=== PATIENT | female | born 1940 | race Caucasian/White ===

== ENCOUNTER 2017-11-21 09:39 | Day surgery (SDC) | payer MEDICARE, OTHER ==
[2017-11-21] MEDS ORDERED: Marcaine 0.5% SDV 10 ML IJ ONE (09:40)
[2017-11-21] MEDS ORDERED: LIDOCAINE HCL 2% 100 MG/5 ML IJ ONE (09:40)
[2017-11-21] MEDS ORDERED: XYLOCAINE-MPF 1% 5ML SDV IJ ONE (09:40)
[2017-11-21] MEDS ORDERED: Lactated Ringers 1,000 ML IV ONE (09:40)
[2017-11-21] MEDS ORDERED: DIPRIVAN 200 MG/20 ML IV ONE (09:40)
[2017-11-21] MEDS ORDERED: XYLOCAINE-MPF 1% 5ML SDV ONE (10:00)
--- NOTE | 2017-11-21 10:47 | XRAY ---
23 seconds fluoroscopy time in surgery for right L4-5 MBB.
--- NOTE | 2017-11-21 14:39 | OP ---
DATE OF PROCEDURE: 11/21/2017 1007 SURGEON: Ghanshyam Rodriguez D.O. PREOPERATIVE DIAGNOSIS: Degenerative lumbar spine disease, spondylosis, low back pain. POSTOPERATIVE DIAGNOSIS: Degenerative lumbar spine disease, spondylosis, low back pain. PROCEDURE PERFORMED: Right L4-L3 medial branch block under fluoroscopic guidance. DESCRIPTION OF THE PROCEDURE: The patient was taken to the operating room and placed in the prone position on the table. Skin at the injection site was prepped and draped in sterile fashion. Under fluoroscopy, bony anatomy of the targeted injection site was visualized. Induction agent was given as per anesthesia while vital signs were monitored. Local anesthetic agent of 0.5 cc of 1% lidocaine preservative free was introduced to anesthetize the skin and the subcutaneous tissue through the injection site. Under fluoroscopic guidance, a #20 gauge standard spinal needle was advanced into the target medial branch through the oblique approach. The preservative free 0.5 cc of 1% lidocaine and 0.5 cc of 0.25% Marcaine were injected into each of the targeted medial branch nerve. After the needle was being removed, the skin was cleansed with alcohol and then a bandage was applied. No complications or adverse consequences were observed. The patient was returned to the holding area until stabilized before discharge to home. The preoperative pain level is 10 out of 10 and postoperative pain level is 4 out of 10. The patient will be followed up within ten days after the injection for re-evaluation.
--- NOTE | 2017-11-22 08:28 | XRAY ---
Indication: Right L4-L5 MBB. Intraoperative fluoroscopy was provided for 23 seconds. 2 digital spot images submitted for interpretation demonstrates 2 posterior spinal needle tips projecting over what appears to be the the right L3 and L4 pedicles. Correlate with intraoperative findings/report.
== END 2017-11-21 10:48 | disposition home or self-care (01) ==
LOC: SDC-PAIN 09:39
PROVIDERS: ATTEND Internal Medicine
DX: M47.816 Spondylosis without myelopathy or radiculopathy, lumbar region (principal); M79.1 Myalgia; M54.2 Cervicalgia; Z79.891 Long term (current) use of opiate analgesic
CPT/HCPCS: 64493; 64494; 72100; 76000; J2704

== ENCOUNTER 2017-12-26 13:32 | Day surgery (SDC) | payer MEDICARE, OTHER ==
[2017-12-26] MEDS ORDERED: Xylocaine 1% Vial 30 ML PF IJ ONE (13:33)
[2017-12-26] MEDS ORDERED: DIPRIVAN 200 MG/20 ML IV ONE (13:33)
[2017-12-26] MEDS ORDERED: Marcaine 0.5% SDV 10 ML IJ ONE (13:33)
[2017-12-26] MEDS ORDERED: Lactated Ringers 1,000 ML IV ONE (14:53)
--- NOTE | 2017-12-27 08:28 | OP ---
DATE OF PROCEDURE: 12/26/2017 1528 SURGEON: Ghanshyam Rodriguez D.O. PREOPERATIVE DIAGNOSIS: Degenerative lumbar spine disease, spondylosis, low back pain. POSTOPERATIVE DIAGNOSIS: Degenerative lumbar spine disease, spondylosis, low back pain. PROCEDURE PERFORMED: Right L4-L3 medial branch block under fluoroscopic guidance. DESCRIPTION OF THE PROCEDURE: The patient was taken to the operating room and placed in the prone position on the table. Skin at the injection site was prepped and draped in sterile fashion. Under fluoroscopy, bony anatomy of the targeted injection site was visualized. Induction agent was given as per anesthesia while vital signs were monitored. Local anesthetic agent used is 5 cc of 1% preservative free lidocaine and the medication used for this nerve block to the medial branch included 1% preservative-free 0.5% Marcaine was introduced to anesthetize the skin and the subcutaneous tissue through the injection site. Under fluoroscopic guidance, a #20 gauge standard spinal needle was advanced into the target medial branch through the oblique approach. The preservative free 0.5 cc of 1% lidocaine and 0.5 cc of 0.5% Marcaine were injected into each of the targeted medial branch nerve. After the needle was being removed, the skin was cleansed with alcohol and then a bandage was applied. No complications or adverse consequences were observed. The patient was returned to the holding area until stabilized before discharge to home. Preoperative pain level is 10 out of 10 and postoperative pain level is 0 out of 10. The patient will be followed up within ten days after the injection for re-evaluation.
--- NOTE | 2017-12-27 09:05 | XRAY ---
Indication: Right L4-L5 MBB. Intraoperative fluoroscopy was provided for 29 seconds. 3 digital spot images submitted for interpretation demonstrates posterior spinal needle tips projecting over the expected course of the right L4 and L5 nerve roots. Correlate with intraoperative findings/report.
--- NOTE | 2017-12-27 10:20 | XRAY ---
29 seconds fluoroscopy time in surgery for right L4-5 MBB.
== END 2017-12-26 16:08 | disposition home or self-care (01) ==
LOC: SDC-PAIN 13:32
PROVIDERS: ATTEND Internal Medicine
DX: M47.816 Spondylosis without myelopathy or radiculopathy, lumbar region (principal); M79.1 Myalgia; M54.2 Cervicalgia; Z79.891 Long term (current) use of opiate analgesic
CPT/HCPCS: 64493; 64494; 72020; 77003; J2001; J2704

== ENCOUNTER 2018-12-23 11:08 | Emergency (ER) | payer MEDICARE, OTHER ==
[2018-12-23 11:21] VITALS: BP 152/98; PULSE 67; O2SAT 100
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
== END 2018-12-23 12:23 | disposition short-term general hospital (02) ==
LOC: ED 11:08
DX: S09.90XA Unspecified injury of head, initial encounter (principal); R51 Headache; W20.8XXA Other cause of strike by thrown, projected or falling object, initial encounter; Z86.73 Personal history of transient ischemic attack (TIA), and cerebral infarction without residual deficits
CPT/HCPCS: 99284; 99285

== ENCOUNTER 2020-03-24 12:48 | Emergency (ER) | payer MEDICARE, OTHER ==
[2020-03-24 13:03] VITALS: BP 181/82; PULSE 96; O2SAT 98
--- NOTE | 2020-03-24 13:22 | ERPHSYRPT ---
- History of Present Illness Time Seen by Provider: 03/24/20 13:10 Source: patient Exam Limitations: no limitations Patient Subjective Stated Complaint: PT states "About 8 or 9 days ago I accidentally shut my leg in the car door on my left knee." Triage Nursing Assessment: Pt presented alert and oriented X 3, skin pwd Pt ambulates with an upright steady gait, able to speak in clear full sentences pt in no apparent respiratory distress. pt left knee swollen and bruised medially Physician History: 79 years old female presented in the ER with chief complaint of left medial side knee/thigh swelling for the last 8 days after she got her leg smashed against while closing car door. She is complaining of moderate intensity dull aching to sharp pain with ambulation and better with resting. No difficulty movements of knee or bony injury. She also has bruising in the left lower medial thigh area. There is no increase in the swelling but swelling is not going away. Method of Injury: direct blow Occurred: days ago (8) Quality: intermittent, sharpness Severity of Pain-Max: moderate Severity of Pain-Current: moderate Lower Extremities Pain: knee: left Modifying Factors: Improves With: immobilization, movement, rest Allergies/Adverse Reactions: No Known Drug Allergies Allergy (Verified 12/23/18 11:21) Home Medications: Verapamil HCl [Verapamil ER Pm] 100 mg PO DAILY 03/06/16 [History] Aspirin [Aspirin EC] 81 mg PO DAILY 03/24/20 [History] Hx Tetanus, Diphtheria Vaccination/Date Given: No Hx Influenza Vaccination/Date Given: Yes Hx Pneumococcal Vaccination/Date Given: No Immunizations Up to Date: Yes Travel Risk - International Travel Have you traveled outside of the country in past 3 weeks: No - Coronavirus Screening Are you exhibiting any of the following symptoms?: No Close contact with a COVID-19 positive Pt in past 14-21 Days: No - Review of Systems Constitutional: No Symptoms Ears, Nose, & Throat: No Symptoms Respiratory: No Symptoms Cardiac: No Symptoms Abdominal/Gastrointestinal: No Symptoms Musculoskeletal: Injury, Joint Pain Skin: No Symptoms Neurological: No Symptoms Psychological: No Symptoms Endocrine: No Symptoms Hematologic/Lymphatic: No Symptoms Immunological/Allergic: No Symptoms - Past Medical History Pertinent Past Medical History: Yes Neurological History: TIA ENT History: Cataracts Cardiac History: Arrhythmia, Myocardial Infarction (CT), Hypertension, Other Respiratory History: Sleep Apnea Endocrine Medical History: No Pertinent History Musculoskeletal History: Arthritis GI Medical History: Crohns Disease, GERD, Pancreatitis History: Other Psycho-Social History: Anxiety Female Reproductive Disorders: No Pertinent History Other Medical History: CT in her 30's. incontinence - Past Surgical History Past Surgical History: Yes Neuro Surgical History: No Pertinent History Cardiac: Cardiac Catheterization Respiratory: No Pertinent History Gastrointestinal: Other, Appendectomy, Cholecystectomy Genitourinary: No Pertinent History Musculoskeletal: Orthopedic Surgery Female Surgical History: Hysterectomy Other Surgical History: BACK SURGERY,TUMOR REMOVAL - right flank and right leg\\. gastric bypass- 1999 - Social History Smoking Status: Never smoker Exposure to second hand smoke: Yes Drug Use: none Patient Lives Alone: No - Female History Hx Now: No - Nursing Vital Signs Nursing Vital Signs: Initial Vital Signs Temperature 98.2 F 03/24/20 12:57 Pulse Rate 96 H 03/24/20 12:57 Respiratory Rate 18 03/24/20 12:57 Blood Pressure 181/82 03/24/20 12:57 O2 Sat by Pulse Oximetry 98 03/24/20 12:57 Pain Scale Pain Intensity 2 - Physical Exam General Appearance: no apparent distress Eyes, Ears, Nose, Throat Exam: normal ENT inspection Neck Exam: normal inspection Cardiovascular/Respiratory Exam: normal breath sounds, regular rate/rhythm Gastrointestinal/Abdominal Exam: non-tender, soft, no organomegaly Back Exam: normal inspection Knees Exam: right knee: no evidence of injury, left knee: pain, soft tissue tenderness, swelling (4x4 cm swelling medial to joint line. superficial /mobile), bilateral knee: non-tender, normal inspection, normal range of motion Neuro/Tendon Exam: normal sensation, normal motor functions Mental Status Exam: alert, oriented x 3, cooperative Skin Exam: normal color SpO2 Interpretation: normal SpO2: 98 O2 Delivery: Room Air - Progress Progress: unchanged Progress Note: 03/24/20 13:35 Does not have any bony tenderness. Intact range of motion. Swelling is superficial, mobile. Not deep. No signs of infection or cellulitis. I believe patient has superficial hematoma/contusion secondary to impact. Recommended ice, elevation and Anastacio wrap and outpatient follow-up. Counseled pt/family regarding: diagnosis, need for follow-up - Departure Departure Disposition: Home Clinical Impression: Hematoma of lower extremity Qualifiers: Encounter type: initial encounter Laterality: left Qualified Code(s): S80.12XA - Contusion of left lower leg, initial encounter Condition: Stable Critical Care Time: No Referrals: LISSETH VARELA [Primary Care Provider] - Follow Up with PCP/3 days Instructions: Knee Pain (DC) Additional Instructions: Take Tylenol as needed. Intermittent elevation. Follow-up with primary care for reevaluation or if it started to get worse you may need an ultrasound. And to ER for increasing pain redness swelling/fever chills.
== END 2020-03-24 13:38 | disposition home or self-care (01) ==
LOC: ED 12:48
DX: S80.12XA Contusion of left lower leg, initial encounter (principal); M25.462 Effusion, left knee; V49.3XXA Car occupant (driver) (passenger) injured in unspecified nontraffic accident, initial encounter; Y93.89 Activity, other specified; Y92.9 Unspecified place or not applicable; S80.02XA Contusion of left knee, initial encounter; X58.XXXA Exposure to other specified factors, initial encounter; I10 Essential (primary) hypertension
CPT/HCPCS: 99283

== ENCOUNTER 2023-09-17 14:05 | Observation (INO) | payer MEDICARE, OTHER ==
[2023-09-17 14:57] LABS: Absolute Neutrophil Ct (ANC) 9.57 x10^3/uL (1.4-6.9); BASOPHIL % 0.2 % (0.0-0.4); Basophil (Absolute #) 0.03 x10^3/uL (0-0.4); Eosinophil % 0.6 % (0.00-5.0); Eosinophil (Absolute #) 0.07 x10^3/uL (0-0.5); Hematocrit 31.6 % (35-47); Hemoglobin 9.5 g/dL (12.0-16.0); IMMATURE GRAN # 0.05 x10^3u/L (0.00-0.03); IMMATURE GRAN % 0.4 % (0.00-0.4); Lymphocyte (Absolute #) 2.02 x10^3/uL (1.0-4.6); Lymphocytes % 16.2 % (24.0-44.0); Mean Cell Volume 90.3 fL (78-100); Mean Corpuscular Hemoglobin 27.1 pg (26-32); Mean Corpuscular Hgb Concent. 30.1 g/dL (32-36); Mean Platelet Volume 9.5 fL (7.5-11.0); Monocyte (Absolute #) 0.72 x10^3/uL (0.0-1.3); Monocytes % 5.8 % (0.0-12.0); Neutrophil % 76.8 % (36.0-66.0); Platelet Count 353 x10^3/uL (150-450); Red Cell Distribution Width 17.3 % (11.5-14.0); White Blood Count 12.5 x10^3/uL (4.0-10.5)
[2023-09-17 15:08] LABS: ALBUMIN 3.7 g/dL (3.5-5.0); BILIRUBIN,TOTAL 0.9 mg/dL (0.2-1.3); Calcium 8.9 mg/dL (8.4-10.2); Creatinine 1 0.61 mg/dL (0.52-1.04); EST GLOMERULAR FILTRATION RATE 88.7 ML/MIN; Potassium 4.2 mmol/L (3.5-5.1); Total Protein 7.1 g/dL (6.3-8.2)
--- NOTE | 2023-09-17 15:11 | XRAY ---
Indication: Cough. Covid 19. Comparison: None Portable chest demonstrates COPD and a few incidental tiny calcified granulomas. No focal infiltrate, consolidation, or large effusion. Heart not enlarged. Bony thorax intact with osteopenia and mild degenerative changes. Impression: Nonacute chest with chronic features.
--- NOTE | 2023-09-17 15:22 | ERPHSYRPT ---
- History of Present Illness Source: patient, other (Son) Exam Limitations: no limitations Patient Subjective Stated Complaint: Left sided rib/back pain 8/10 Triage Nursing Assessment: Patient ambulated back to ED and transferred self to bed. Patient A+O X3. Patient's skin pink, warm and dry. Patient complains of left sided rib and upper back pain 8/10 for the past couple of days. Patient was COVID + 10 days ago. Lungs noted to be course on left side. Physician History: 83-year-old female with history of COVID-19 x 10 days presents with left posterior thoracic pain for proxy 10 days also. Pain is 8 out of 10 and sharp. Nothing seems to make the pain better or worse. She still has a cough. Fevers denied. She denies any chest pain. Patient denies any trauma. Timing/Duration: other (Intermittently for 10 days) Method of Injury: other (Denies any) Severity of Pain-Max: none Severity of Pain-Current: none Modifying Factors: Improves With: nothing (Nothing makes pain better or worse) Associated Symptoms: denies symptoms Previous symptoms: no prior history Allergies/Adverse Reactions: No Known Drug Allergies Allergy (Verified 09/17/23 14:20) Home Medications: Verapamil HCl [Verapamil ER Pm] 100 mg PO DAILY 03/06/16 [History] Hx Tetanus, Diphtheria Vaccination/Date Given: No Hx Influenza Vaccination/Date Given: Yes Hx Pneumococcal Vaccination/Date Given: No Immunizations Up to Date: Yes Travel Risk - International Travel Have you traveled outside of the country in past 3 weeks: No - Coronavirus Screening Are you exhibiting any of the following symptoms?: No - Vaccine Status Have you recieved a Covid-19 vaccination: Yes 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 - Vaccination Dates Dates if Unknown: na - Review of Systems Constitutional: No Symptoms Eyes: No Symptoms Ears, Nose, & Throat: No Symptoms Respiratory: Cough, No Dyspnea, No Dyspnea on Exertion (LACY) Cardiac: No Symptoms Abdominal/Gastrointestinal: No Symptoms Genitourinary Symptoms: No Symptoms Musculoskeletal: No Symptoms, Back Pain Skin: No Symptoms Neurological: No Symptoms Psychological: No Symptoms Endocrine: No Symptoms Hematologic/Lymphatic: No Symptoms Immunological/Allergic: No Symptoms - Past Medical History Pertinent Past Medical History: Yes Neurological History: TIA ENT History: Cataracts Cardiac History: Arrhythmia, Myocardial Infarction (SD), Hypertension, Other Respiratory History: Sleep Apnea Endocrine Medical History: No Pertinent History Musculoskeletal History: Arthritis GI Medical History: Crohns Disease, GERD, Pancreatitis History: Other Psycho-Social History: Anxiety Female Reproductive Disorders: No Pertinent History Other Medical History: SD in her 30's. incontinence - Past Surgical History Past Surgical History: Yes Neuro Surgical History: No Pertinent History Cardiac: Cardiac Catheterization Respiratory: No Pertinent History Gastrointestinal: Other, Appendectomy, Cholecystectomy Genitourinary: No Pertinent History Musculoskeletal: Orthopedic Surgery Female Surgical History: Hysterectomy Other Surgical History: BACK SURGERY,TUMOR REMOVAL - right flank and right leg\. gastric bypass- 1999 - Social History Smoking Status: Never smoker Exposure to second hand smoke: Yes Drug Use: none Patient Lives Alone: No - Nursing Vital Signs Nursing Vital Signs: Initial Vital Signs Temperature 98.2 F 09/17/23 14:27 Pulse Rate 82 09/17/23 14:27 Respiratory Rate 20 09/17/23 14:27 Blood Pressure 142/66 09/17/23 14:27 O2 Sat by Pulse Oximetry 98 09/17/23 14:27 Pain Scale Pain Intensity 4 Hypertensive - Physical Exam General Appearance: no apparent distress Eye Exam: PERRL/EOMI, eyes nml inspection Ears, Nose, Throat Exam: normal ENT inspection, TMs normal, pharynx normal, moist mucous membranes Neck Exam: normal inspection, non-tender, supple, full range of motion, No meningismus, No mass, No Brudzinski, No Kernig's Respiratory Exam: crackles/rales (Rales at the bases bilaterally left greater than right) Cardiovascular Exam: regular rate/rhythm, normal heart sounds, normal peripheral pulses, capillary refill <2 sec, No murmur Gastrointestinal Exam: soft, normal bowel sounds, No tenderness Back Exam: normal inspection, normal range of motion, No CVA tenderness, No vertebral tenderness Extremity Exam: normal inspection, normal range of motion Neurologic Exam: alert, oriented x 3, cooperative, 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, normal mood/affect, nml cerebellar function, nml station & gait, sensation nml Skin Exam: normal color, warm, dry, No rash Lymphatic Exam: No adenopathy SpO2 Interpretation: normal SpO2: 98 - Course Nursing assessment & vital signs reviewed: Yes EKG Interpreted by Me: RATE (Normal sinus rhythm/rate 78/normal QT/normal QTc/poor R wave progression/possible old inferior SD/no acute ST segment changes/interpreted contemporaneously per ER physician.) - CT Exams Chest CT Interpretation: Discussed w/radiologist (Minimal right middle lobe and lingular bronchiolitis/osteopenia) Abdomen/Pelvis CT Interpretation: Discussed w/radiologist (Gastric bypass/diverticulo sis/osteopenia per radiologist.) Ordered Tests: Active Orders 24 hr Category Date Time Status Bedrest ROUTINE Activity 09/17/23 19:34 Active Call Admit Doctor for Orders ON ADMISSION Care 09/17/23 19:33 Active Code Status Order ROUTINE Care 09/17/23 19:33 Active EKG-ER Only STAT Care 09/17/23 14:38 Active IV Insertion STAT Care 09/17/23 18:[address] in Observation ROUTINE Care 09/17/23 19:34 Active Heart-Healthy Diet Diet 09/18/23 Breakfast Active ABDOMEN AND PELVIS W/0 CONTRAS [CT] Stat Exams 09/17/23 16:30 Taken CHEST 1 VIEW (PORTABLE) Stat Exams 09/17/23 14:38 Completed CHEST WITHOUT CONTRAST [CT] Stat Exams 09/17/23 16:30 Taken BLOOD CULTURE Stat Lab 09/17/23 19:30 Received CBC W DIFF Stat Lab 09/17/23 14:00 Completed CMP Stat Lab 09/17/23 14:00 Completed CULTURE,URINE Stat Lab 09/17/23 16:08 Received D-DIMER QUANTITATIVE Stat Lab 09/17/23 14:00 Completed TROPONIN Q4H Lab 09/17/23 14:00 Completed TROPONIN Q4H Lab 09/17/23 18:35 Completed TROPONIN Q4H Lab 09/17/23 22:45 Ordered UA W/RFX UR CULTURE Stat Lab 09/17/23 16:08 Completed Transfer Order Routine Transfer 09/17/23 Ordered Medication Summary Discontinued Medications Generic Name Dose Route Start Last Admin Trade Name Freq PRN Reason Stop Dose Admin Ceftriaxone Sodium 1 gm in 100 mls @ 200 mls/hr 09/17/23 18:42 09/17/23 19:35 Rocephin 1 Gm / 100 Ml Nacl IV 09/17/23 19:11 200 mls/hr STAT ONE 200 mls/hr Administration Ceftriaxone Sodium Confirm 09/17/23 19:33 Rocephin 1 Gm / 100 Ml Nacl Administered 09/17/23 19:34 Dose 1 gm in 100 mls @ ud IV .STK-MED ONE Ketorolac Tromethamine 15 mg 09/17/23 19:10 09/17/23 19:15 Ketorolac Tromethamine 30 Mg/Ml Inj IV 09/17/23 19:11 15 mg STAT ONE Administration Ketorolac Tromethamine Confirm 09/17/23 19:09 Ketorolac Tromethamine 30 Mg/Ml Inj Administered 09/17/23 19:10 Dose 30 mg .ROUTE .STK-MED ONE Lab/Rad Data: Laboratory Result Diagrams 09/17/23 14:00 09/17/23 14:00 Laboratory Results 09/17/23 09/17/23 09/17/23 Range/Units 18:35 16:08 14:00 WBC (4.0-10.5) x10^3/uL RBC (4.1-5.4) x10^6/uL Hgb (12.0-16.0) g/dL Hct (35-47) % MCV (78-100) fL MCH (26-32) pg MCHC (32-36) g/dL RDW (11.5-14.0) % Plt Count (150-450) x10^3/uL MPV (7.5-11.0) fL Gran % (36.0-66.0) % Immature Gran % (Auto) (0.00-0.4) % Nucleat RBC Rel Count (0.00-0.1) % Eos # (Auto) (0-0.5) x10^3/uL Immature Gran # (Auto) (0.00-0.03) x10^3u/L Absolute Lymphs (auto) (1.0-4.6) x10^3/uL Absolute Monos (auto) (0.0-1.3) x10^3/uL Absolute Nucleated RBC (0.00-0.01) x10^3u/L Lymphocytes % (24.0-44.0) % Monocytes % (0.0-12.0) % Eosinophils % (0.00-5.0) % Basophils % (0.0-0.4) % Absolute Granulocytes (1.4-6.9) x10^3/uL Basophils # (0-0.4) x10^3/uL D-Dimer (0.0-0.50) mg/L Sodium (137-145) mmol/L Potassium (3.5-5.1) mmol/L Chloride (98-107) mmol/L Carbon Dioxide (22-30) mmol/L Anion Gap (5-15) MEQ/L BUN (7-17) mg/dL Creatinine (0.52-1.04) mg/dL Estimated GFR ML/MIN Glucose (74-106) mg/dL Calcium (8.4-10.2) mg/dL Total Bilirubin (0.2-1.3) mg/dL AST (14-36) U/L ALT (0-35) U/L Alkaline Phosphatase (38-126) U/L Troponin I < 0.012 0.013 (0.000-0.034) ng/mL Serum Total Protein (6.3-8.2) g/dL Albumin (3.5-5.0) g/dL Urine Color Yellow (Yellow) Urine Appearance Clear (Clear) Urine pH 7.0 (4.6-8.0) Ur Specific [place] 1.025 (1.005-1.030) Urine Protein Negative (Negative) Urine Glucose (UA) Negative (Negative) mg/dL Urine Ketones Trace A (Negative) Urine Blood Negative (Negative) Urine Nitrite Positive A (Negative) Urine Bilirubin Negative (Negative) Urine Urobilinogen 1.0 A (0.2) mg/dL Ur Leukocyte Esterase Small A (Negative) Urine Microscopic RBC 0-2 (0-5) /HPF Urine Microscopic WBC 21-50 A (0-5) /HPF Ur Epithelial Cells None Seen (None Seen) /HPF Urine Bacteria Many A (None Seen) /HPF Urine Culture Reflexed YES (NO) 09/17/23 09/17/23 09/17/23 Range/Units 14:00 14:00 14:00 WBC 12.5 H (4.0-10.5) x10^3/uL RBC 3.50 L (4.1-5.4) x10^6/uL Hgb 9.5 L (12.0-16.0) g/dL Hct 31.6 L (35-47) % MCV 90.3 (78-100) fL MCH 27.1 (26-32) pg MCHC 30.1 L (32-36) g/dL RDW 17.3 H (11.5-14.0) % Plt Count 353 (150-450) x10^3/uL MPV 9.5 (7.5-11.0) fL Gran % 76.8 H (36.0-66.0) % Immature Gran % (Auto) 0.4 (0.00-0.4) % Nucleat RBC Rel Count 0.0 (0.00-0.1) % Eos # (Auto) 0.07 (0-0.5) x10^3/uL Immature Gran # (Auto) 0.05 H (0.00-0.03) x10^3u/L Absolute Lymphs (auto) 2.02 (1.0-4.6) x10^3/uL Absolute Monos (auto) 0.72 (0.0-1.3) x10^3/uL Absolute Nucleated RBC 0.00 (0.00-0.01) x10^3u/L Lymphocytes % 16.2 L (24.0-44.0) % Monocytes % 5.8 (0.0-12.0) % Eosinophils % 0.6 (0.00-5.0) % Basophils % 0.2 (0.0-0.4) % Absolute Granulocytes 9.57 H (1.4-6.9) x10^3/uL Basophils # 0.03 (0-0.4) x10^3/uL D-Dimer 0.45 (0.0-0.50) mg/L Sodium 138 (137-145) mmol/L Potassium 4.2 (3.5-5.1) mmol/L Chloride 105 (98-107) mmol/L Carbon Dioxide 28 (22-30) mmol/L Anion Gap 9.0 (5-15) MEQ/L BUN 18 H (7-17) mg/dL Creatinine 0.61 (0.52-1.04) mg/dL Estimated GFR 88.7 ML/MIN Glucose 101 (74-106) mg/dL Calcium 8.9 (8.4-10.2) mg/dL Total Bilirubin 0.90 (0.2-1.3) mg/dL AST 20 (14-36) U/L ALT 8 (0-35) U/L Alkaline Phosphatase 99 (38-126) U/L Troponin I (0.000-0.034) ng/mL Serum Total Protein 7.1 (6.3-8.2) g/dL Albumin 3.7 (3.5-5.0) g/dL Urine Color (Yellow) Urine Appearance (Clear) Urine pH (4.6-8.0) Ur Specific [place] (1.005-1.030) Urine Protein (Negative) Urine Glucose (UA) (Negative) mg/dL Urine Ketones (Negative) Urine Blood (Negative) Urine Nitrite (Negative) Urine Bilirubin (Negative) Urine Urobilinogen (0.2) mg/dL Ur Leukocyte Esterase (Negative) Urine Microscopic RBC (0-5) /HPF Urine Microscopic WBC (0-5) /HPF Ur Epithelial Cells (None Seen) /HPF Urine Bacteria (None Seen) /HPF Urine Culture Reflexed (NO) - Progress Progress: improved Progress Note: 09/17/23 20:28 Nursing note and vital signs reviewed. No food or housing insecurity noted. All lab results reviewed and shared with patient. All CAT scan results reviewed and shared with patient. Patient has a UTI with possible pyelonephritis and leukocytosis. Blood cultures done x 2 and patient given 1 g IV Rocephin. Patient also given 15 mg IV Toradol. Patient is a full code. Observation per Dr. Moore Counseled pt/family regarding: lab results, diagnosis, rad results Medical Desision Making - Independent Historian Additional History obtained from: Child - Discussion of managment Care discussed with:: hospitalist Reviewed:: Test results, Need for additional workup Agreed on:: place in obs Will see patient: in hospital - Diagnostic Testing Diagnostic test were ordered, analyzed, and reviewed by me: Yes Radiological Interpretation: Reviewed by me - Risk of complications The pt has a high risk of morbidity or mortality based on: Drug therapy requiring intensive monitoring for toxicity - Departure Departure Disposition: Observation Clinical Impression: UTI (urinary tract infection) Condition: Stable Critical Care Time: No Referrals: IRMA KIRKLAND [Primary Care Provider] - Follow up/PCP as directed
[2023-09-17 16:22] LABS: Appearance Clear (Clear); Bilirubin Negative (Negative); Blood Negative (Negative); Glucose, Urine Negative (Negative); Ketones Trace (Negative); Leukocyte Esterase Small (Negative); Nitrite Positive (Negative); Protein,Urine Dip Negative (Negative); Specific Gravity 1.025 (1.005-1.030)
[2023-09-17 16:23] LABS: ADD URINE CULTURE? YES (NO); Bacteria Many /HPF (None Seen); Epithelial Cells None Seen /HPF (None Seen); RBC 0-2 /HPF (0-5); WBC 21-50 /HPF (0-5)
[2023-09-17] MEDS ORDERED: TORAdol 30 mg Injection IM ONE (18:18)
[2023-09-17] MEDS ORDERED: ROCEPHIN 1 GM / 100 ML NaCl 1 GM/100 ML IVPB IV ONE ×2 (18:42→19:33)
[2023-09-17] MEDS ORDERED: TORAdol 30 mg Injection ONE (19:09)
[2023-09-17] MEDS ORDERED: TORAdol 30 mg Injection IV ONE (19:10)
[2023-09-17] MEDS: Coreg PO SCH (22:51)
[2023-09-17] MEDS: CALAN 80 MG PO SCH (22:51)
[2023-09-17] MEDS: TORAdol 30 mg Injection IV PRN (22:51)
[2023-09-17] MEDS ORDERED: Docusate Sodium 100 MG PO PRN (22:59)
[2023-09-17] MEDS ORDERED: Zofran 4 MG/2 ML VIAL IV PRN (22:59)
[2023-09-17] MEDS ORDERED: ROCEPHIN 1 GM / 100 ML NaCl 1 GM/100 ML IVPB IV SCH (23:00)
[2023-09-17] MEDS: Sodium Chloride 0.9% 1000 ML 1,000 ML IV SCH (23:09)
--- NOTE | 2023-09-17 23:22 | PCM.HP ---
History of Present Illness - Chief Complaint Chief Complaint: UTI Date: 09/17/23 History of Present Illness: is a 83 year old female with a history of HTN and recent COVID (10 days ago) who presents to the hospital with a complaint of left sided rib and upper b ack pain (intensity 8/10) for the past 10 days. She has had a persistent cough but denies any factors improving or worsening the pain. She denies any trauma to her back, fevers, chills, dysuria or pyuria. She denies a history of frequent UTIs. Chest pain and dyspnea were denied. No hemoptysis was reported. In the ED, the patient was noted to have evidence of a left sided pyelonephritis and UTI and received antibiotics. Of note, she recently has been off of her blood pressure medications. - Review of Systems Constitutional: No Symptoms Eyes: No Symptoms Ears, Nose, & Throat: No Symptoms Respiratory: Cough Cardiac: No Symptoms Abdominal/Gastrointestinal: No Symptoms Genitourinary Symptoms: No Symptoms Musculoskeletal: Back Pain Skin: No Symptoms Neurological: No Symptoms Psychological: No Symptoms Endocrine: No Symptoms Hematologic/Lymphatic: No Symptoms Immunological/Allergic: No Symptoms All Other Systems: Reviewed and Negative Medications & Allergies Home Medications: Home Medication List Verapamil HCl [Verapamil ER Pm] 100 mg PO DAILY 03/06/16 [History Confirmed 09/17/23] Carvedilol [Coreg ] 6.25 mg PO BID 09/17/23 [History Confirmed 09/17/23] Allergies/Adverse Reactions: Allergies Allergy/AdvReac Type Severity Reaction Status Date / Time No Known Drug Allergies Allergy Verified 09/17/23 21:26 - Past Medical History Past Medical History: Yes Neurological History: TIA ENT History: Cataracts Cardiac History: Arrhythmia, Myocardial Infarction (ID), Hypertension, Other Respiratory History: Sleep Apnea Endocrine Medical History: No Pertinent History Musculoskelatal History: Arthritis GI Medical History: Crohns Disease, GERD, Pancreatitis History: Other Pyscho-Social History: Anxiety Reproductive Disorders: No Pertinent History Comment: ID in her 30's. incontinence - Female History Are you now?: No - Past Surgical History Past Surgical History: Yes Neuro Surgical History: No Pertinent History Cardiac History: Cardiac Catheterization Respiratory Surgery: No Pertinent History GI Surgical History: Other, Appendectomy, Cholecystectomy Genitourinary Surgical Hx: No Pertinent History Musculskeletal Surgical Hx: Orthopedic Surgery Female Surgical History: Hysterectomy Other Surgical History: BACK SURGERY,TUMOR REMOVAL - right flank and right leg\\. 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, normal mood/affect, nml cerebellar function Eye Exam: PERRL/EOMI, eyes nml inspection Ears, Nose, Throat Exam: normal ENT inspection, moist mucous membranes Neck Exam: normal inspection, non-tender, supple, full range of motion Respiratory Exam: normal breath sounds, lungs clear Cardiovascular Exam: regular rate/rhythm, normal heart sounds Gastrointestinal/Abdomen Exam: soft, normal bowel sounds Back Exam: CVA tenderness (noted on left) Extremity Exam: normal inspection, normal range of motion Skin Exam: normal color Results - Labs Lab/Micro Results: Lab Results-Last 24 Hours 09/17/23 09/17/23 09/17/23 Range/Units 14:00 14:00 14:00 WBC 12.5 H (4.0-10.5) x10^3/uL RBC 3.50 L (4.1-5.4) x10^6/uL Hgb 9.5 L (12.0-16.0) g/dL Hct 31.6 L (35-47) % MCV 90.3 (78-100) fL MCH 27.1 (26-32) pg MCHC 30.1 L (32-36) g/dL RDW 17.3 H (11.5-14.0) % Plt Count 353 (150-450) x10^3/uL MPV 9.5 (7.5-11.0) fL Gran % 76.8 H (36.0-66.0) % Immature Gran % (Auto) 0.4 (0.00-0.4) % Nucleat RBC Rel Count 0.0 (0.00-0.1) % Eos # (Auto) 0.07 (0-0.5) x10^3/uL Immature Gran # (Auto) 0.05 H (0.00-0.03) x10^3u/L Absolute Lymphs (auto) 2.02 (1.0-4.6) x10^3/uL Absolute Monos (auto) 0.72 (0.0-1.3) x10^3/uL Absolute Nucleated RBC 0.00 (0.00-0.01) x10^3u/L Lymphocytes % 16.2 L (24.0-44.0) % Monocytes % 5.8 (0.0-12.0) % Eosinophils % 0.6 (0.00-5.0) % Basophils % 0.2 (0.0-0.4) % Absolute Granulocytes 9.57 H (1.4-6.9) x10^3/uL Basophils # 0.03 (0-0.4) x10^3/uL D-Dimer 0.45 (0.0-0.50) mg/L Sodium 138 (137-145) mmol/L Potassium 4.2 (3.5-5.1) mmol/L Chloride 105 (98-107) mmol/L Carbon Dioxide 28 (22-30) mmol/L Anion Gap 9.0 (5-15) MEQ/L BUN 18 H (7-17) mg/dL Creatinine 0.61 (0.52-1.04) mg/dL Estimated GFR 88.7 ML/MIN Glucose 101 (74-106) mg/dL Calcium 8.9 (8.4-10.2) mg/dL Total Bilirubin 0.90 (0.2-1.3) mg/dL AST 20 (14-36) U/L ALT 8 (0-35) U/L Alkaline Phosphatase 99 (38-126) U/L Troponin I (0.000-0.034) ng/mL Serum Total Protein 7.1 (6.3-8.2) g/dL Albumin 3.7 (3.5-5.0) g/dL Urine Color (Yellow) Urine Appearance (Clear) Urine pH (4.6-8.0) Ur Specific [place] (1.005-1.030) Urine Protein (Negative) Urine Glucose (UA) (Negative) mg/dL Urine Ketones (Negative) Urine Blood (Negative) Urine Nitrite (Negative) Urine Bilirubin (Negative) Urine Urobilinogen (0.2) mg/dL Ur Leukocyte Esterase (Negative) Urine Microscopic RBC (0-5) /HPF Urine Microscopic WBC (0-5) /HPF Ur Epithelial Cells (None Seen) /HPF Urine Bacteria (None Seen) /HPF Urine Culture Reflexed (NO) 09/17/23 09/17/23 09/17/23 Range/Units 14:00 16:08 18:35 WBC (4.0-10.5) x10^3/uL RBC (4.1-5.4) x10^6/uL Hgb (12.0-16.0) g/dL Hct (35-47) % MCV (78-100) fL MCH (26-32) pg MCHC (32-36) g/dL RDW (11.5-14.0) % Plt Count (150-450) x10^3/uL MPV (7.5-11.0) fL Gran % (36.0-66.0) % Immature Gran % (Auto) (0.00-0.4) % Nucleat RBC Rel Count (0.00-0.1) % Eos # (Auto) (0-0.5) x10^3/uL Immature Gran # (Auto) (0.00-0.03) x10^3u/L Absolute Lymphs (auto) (1.0-4.6) x10^3/uL Absolute Monos (auto) (0.0-1.3) x10^3/uL Absolute Nucleated RBC (0.00-0.01) x10^3u/L Lymphocytes % (24.0-44.0) % Monocytes % (0.0-12.0) % Eosinophils % (0.00-5.0) % Basophils % (0.0-0.4) % Absolute Granulocytes (1.4-6.9) x10^3/uL Basophils # (0-0.4) x10^3/uL D-Dimer (0.0-0.50) mg/L Sodium (137-145) mmol/L Potassium (3.5-5.1) mmol/L Chloride (98-107) mmol/L Carbon Dioxide (22-30) mmol/L Anion Gap (5-15) MEQ/L BUN (7-17) mg/dL Creatinine (0.52-1.04) mg/dL Estimated GFR ML/MIN Glucose (74-106) mg/dL Calcium (8.4-10.2) mg/dL Total Bilirubin (0.2-1.3) mg/dL AST (14-36) U/L ALT (0-35) U/L Alkaline Phosphatase (38-126) U/L Troponin I 0.013 < 0.012 (0.000-0.034) ng/mL Serum Total Protein (6.3-8.2) g/dL Albumin (3.5-5.0) g/dL Urine Color Yellow (Yellow) Urine Appearance Clear (Clear) Urine pH 7.0 (4.6-8.0) Ur Specific [place] 1.025 (1.005-1.030) Urine Protein Negative (Negative) Urine Glucose (UA) Negative (Negative) mg/dL Urine Ketones Trace A (Negative) Urine Blood Negative (Negative) Urine Nitrite Positive A (Negative) Urine Bilirubin Negative (Negative) Urine Urobilinogen 1.0 A (0.2) mg/dL Ur Leukocyte Esterase Small A (Negative) Urine Microscopic RBC 0-2 (0-5) /HPF Urine Microscopic WBC 21-50 A (0-5) /HPF Ur Epithelial Cells None Seen (None Seen) /HPF Urine Bacteria Many A (None Seen) /HPF Urine Culture Reflexed YES (NO) - Radiology Impressions Radiology Exams & Impressions: Radiology Procedures Category Date Time Status ABDOMEN AND PELVIS W/0 CONTRAS [CT] Stat Exams 09/17/23 16:30 Taken CHEST 1 VIEW (PORTABLE) Stat Exams 09/17/23 14:38 Completed CHEST WITHOUT CONTRAST [CT] Stat Exams 09/17/23 16:30 Taken Assessment/Plan (1) UTI (urinary tract infection) Current Visit: Yes Status: Acute Assessment & Plan: Likely left sided pyelonephritis with CVA tenderness. IV antibiotics. IV Toradol prn for relief. Follow culture. No history of frequent UTIs but may need outpatient urology referral consideration. Will need extended course for complicated UTI. Code(s): N39.0 - URINARY TRACT INFECTION, SITE NOT SPECIFIED (2) Leukocytosis Current Visit: Yes Status: Acute Assessment & Plan: Due to UTI/Pyelonephritis. Will recheck counts. Code(s): D72.829 - ELEVATED WHITE BLOOD CELL COUNT, UNSPECIFIED (3) Essential hypertension Current Visit: Yes Status: Acute Assessment & Plan: Resume home medications. May need new prescriptions at discharge. Code(s): I10 - ESSENTIAL (PRIMARY) HYPERTENSION (4) Cough Current Visit: Yes Status: Acute Assessment & Plan: Recently recovered from COVID. Preliminary report is that CTA was negative for PE and infiltrate. Follow up final read. Code(s): R05.9 - COUGH, UNSPECIFIED Telemedicine Encounter - Telemedicine Encounter Telemedicine Encounter: The entirety of this encounter was performed via Telemedicine"
[2023-09-18] MEDS: TYLENOL 325 MG PO PRN ×3 (01:14→17:33)
--- NOTE | 2023-09-18 05:13 | PCM.NOTE ---
Date and Time: 09/18/23 0501 Subjective Assessment: HPI: is a 83 year old female with a history of HTN and recent COVID (10 days ago) who presents to the hospital with a complaint of left sided rib and upper back pain (intensity 8/10) for the past [address] imaging showing Multilevel lumbar radiolucent lesions as detailed favoring vertebral hemangiomas. Osteolytic malignancy not completely excluded. Right middle lobe and lingula imjk-bw-kiz-like opacities favoring bronchiolitis. MRI pending. Admitted for UTI/pyelonephritis. Initial labs with leukocytosis and mild hyponatremia. Current treatment with Rocephin. 09/18/23: Met with patient bedside. No overnight events noted. Back pain improved some with current pain regimen. Discussed CT findings. MRI scheduled for today. Ucult pending. No urinary symptoms. BP stabilizing. Denies fever,cough, sob, cp, abdominal pain, CROSS, dizziness, N/V/D. - Review of Systems Constitutional: No Symptoms Eyes: No Symptoms Ears, Nose, & Throat: No Symptoms Respiratory: No Symptoms Cardiac: No Symptoms Abdominal/Gastrointestinal: No Symptoms Genitourinary Symptoms: No Symptoms Musculoskeletal: Back Pain Skin: No Symptoms Neurological: No Symptoms Psychological: No Symptoms Endocrine: No Symptoms Hematologic/Lymphatic: No Symptoms Immunological/Allergic: No Symptoms Objective Exam General Appearance: no apparent distress Neurologic Exam: alert, oriented x 3, cooperative Skin Exam: normal color Eye Exam: PERRL Ears, Nose, Throat Exam: normal ENT inspection Neck Exam: normal inspection Respiratory Exam: normal breath sounds, lungs clear Cardiovascular Exam: regular rate/rhythm, normal heart sounds Gastrointestinal/Abdomen Exam: soft, normal bowel sounds Extremity Exam: normal inspection Back Exam: normal inspection, CVA tenderness (mild) Pelvic Exam: deferred Rectal Exam: deferred OBJECTIVE DATA Vital Signs: Vital Signs - 24 hr Temp Pulse Resp BP BP Pulse Ox 09/18/23 04:00 98.1 F 80 18 182/81 93 L 09/17/23 21:02 97.7 F 78 18 191/85 93 L 09/17/23 20:31 98 09/17/23 20:30 71 18 177/83 96 09/17/23 19:00 76 20 183/98 94 L 09/17/23 18:00 78 18 174/85 95 09/17/23 16:05 75 18 174/85 96 09/17/23 14:27 98.2 F 82 20 142/66 98 Pain Assessment - Last Documented Pain Intensity 0 Pain Scale Used 0-10 Pain Scale Intake and Output: Intake & Output 09/15/23 09/16/23 09/17/23 09/18/23 11:59 11:59 11:59 11:59 Intake Total 360 Output Total 250 Balance 110 Weight 67.7 kg Lab Results: Lab Results-Last 24 Hours 09/17/23 09/17/23 09/17/23 Range/Units 14:00 14:00 14:00 WBC 12.5 H (4.0-10.5) x10^3/uL RBC 3.50 L (4.1-5.4) x10^6/uL Hgb 9.5 L (12.0-16.0) g/dL Hct 31.6 L (35-47) % MCV 90.3 (78-100) fL MCH 27.1 (26-32) pg MCHC 30.1 L (32-36) g/dL RDW 17.3 H (11.5-14.0) % Plt Count 353 (150-450) x10^3/uL MPV 9.5 (7.5-11.0) fL Gran % 76.8 H (36.0-66.0) % Immature Gran % (Auto) 0.4 (0.00-0.4) % Nucleat RBC Rel Count 0.0 (0.00-0.1) % Eos # (Auto) 0.07 (0-0.5) x10^3/uL Immature Gran # (Auto) 0.05 H (0.00-0.03) x10^3u/L Absolute Lymphs (auto) 2.02 (1.0-4.6) x10^3/uL Absolute Monos (auto) 0.72 (0.0-1.3) x10^3/uL Absolute Nucleated RBC 0.00 (0.00-0.01) x10^3u/L Lymphocytes % 16.2 L (24.0-44.0) % Monocytes % 5.8 (0.0-12.0) % Eosinophils % 0.6 (0.00-5.0) % Basophils % 0.2 (0.0-0.4) % Absolute Granulocytes 9.57 H (1.4-6.9) x10^3/uL Basophils # 0.03 (0-0.4) x10^3/uL D-Dimer 0.45 (0.0-0.50) mg/L Sodium 138 (137-145) mmol/L Potassium 4.2 (3.5-5.1) mmol/L Chloride 105 (98-107) mmol/L Carbon Dioxide 28 (22-30) mmol/L Anion Gap 9.0 (5-15) MEQ/L BUN 18 H (7-17) mg/dL Creatinine 0.61 (0.52-1.04) mg/dL Estimated GFR 88.7 ML/MIN Glucose 101 (74-106) mg/dL Calcium 8.9 (8.4-10.2) mg/dL Total Bilirubin 0.90 (0.2-1.3) mg/dL AST 20 (14-36) U/L ALT 8 (0-35) U/L Alkaline Phosphatase 99 (38-126) U/L Troponin I (0.000-0.034) ng/mL Serum Total Protein 7.1 (6.3-8.2) g/dL Albumin 3.7 (3.5-5.0) g/dL Urine Color (Yellow) Urine Appearance (Clear) Urine pH (4.6-8.0) Ur Specific [place] (1.005-1.030) Urine Protein (Negative) Urine Glucose (UA) (Negative) mg/dL Urine Ketones (Negative) Urine Blood (Negative) Urine Nitrite (Negative) Urine Bilirubin (Negative) Urine Urobilinogen (0.2) mg/dL Ur Leukocyte Esterase (Negative) Urine Microscopic RBC (0-5) /HPF Urine Microscopic WBC (0-5) /HPF Ur Epithelial Cells (None Seen) /HPF Urine Bacteria (None Seen) /HPF Urine Culture Reflexed (NO) 09/17/23 09/17/23 09/17/23 Range/Units 14:00 16:08 18:35 WBC (4.0-10.5) x10^3/uL RBC (4.1-5.4) x10^6/uL Hgb (12.0-16.0) g/dL Hct (35-47) % MCV (78-100) fL MCH (26-32) pg MCHC (32-36) g/dL RDW (11.5-14.0) % Plt Count (150-450) x10^3/uL MPV (7.5-11.0) fL Gran % (36.0-66.0) % Immature Gran % (Auto) (0.00-0.4) % Nucleat RBC Rel Count (0.00-0.1) % Eos # (Auto) (0-0.5) x10^3/uL Immature Gran # (Auto) (0.00-0.03) x10^3u/L Absolute Lymphs (auto) (1.0-4.6) x10^3/uL Absolute Monos (auto) (0.0-1.3) x10^3/uL Absolute Nucleated RBC (0.00-0.01) x10^3u/L Lymphocytes % (24.0-44.0) % Monocytes % (0.0-12.0) % Eosinophils % (0.00-5.0) % Basophils % (0.0-0.4) % Absolute Granulocytes (1.4-6.9) x10^3/uL Basophils # (0-0.4) x10^3/uL D-Dimer (0.0-0.50) mg/L Sodium (137-145) mmol/L Potassium (3.5-5.1) mmol/L Chloride (98-107) mmol/L Carbon Dioxide (22-30) mmol/L Anion Gap (5-15) MEQ/L BUN (7-17) mg/dL Creatinine (0.52-1.04) mg/dL Estimated GFR ML/MIN Glucose (74-106) mg/dL Calcium (8.4-10.2) mg/dL Total Bilirubin (0.2-1.3) mg/dL AST (14-36) U/L ALT (0-35) U/L Alkaline Phosphatase (38-126) U/L Troponin I 0.013 < 0.012 (0.000-0.034) ng/mL Serum Total Protein (6.3-8.2) g/dL Albumin (3.5-5.0) g/dL Urine Color Yellow (Yellow) Urine Appearance Clear (Clear) Urine pH 7.0 (4.6-8.0) Ur Specific [place] 1.025 (1.005-1.030) Urine Protein Negative (Negative) Urine Glucose (UA) Negative (Negative) mg/dL Urine Ketones Trace A (Negative) Urine Blood Negative (Negative) Urine Nitrite Positive A (Negative) Urine Bilirubin Negative (Negative) Urine Urobilinogen 1.0 A (0.2) mg/dL Ur Leukocyte Esterase Small A (Negative) Urine Microscopic RBC 0-2 (0-5) /HPF Urine Microscopic WBC 21-50 A (0-5) /HPF Ur Epithelial Cells None Seen (None Seen) /HPF Urine Bacteria Many A (None Seen) /HPF Urine Culture Reflexed YES (NO) 09/17/23 Range/Units 23:34 WBC (4.0-10.5) x10^3/uL RBC (4.1-5.4) x10^6/uL Hgb (12.0-16.0) g/dL Hct (35-47) % MCV (78-100) fL MCH (26-32) pg MCHC (32-36) g/dL RDW (11.5-14.0) % Plt Count (150-450) x10^3/uL MPV (7.5-11.0) fL Gran % (36.0-66.0) % Immature Gran % (Auto) (0.00-0.4) % Nucleat RBC Rel Count (0.00-0.1) % Eos # (Auto) (0-0.5) x10^3/uL Immature Gran # (Auto) (0.00-0.03) x10^3u/L Absolute Lymphs (auto) (1.0-4.6) x10^3/uL Absolute Monos (auto) (0.0-1.3) x10^3/uL Absolute Nucleated RBC (0.00-0.01) x10^3u/L Lymphocytes % (24.0-44.0) % Monocytes % (0.0-12.0) % Eosinophils % (0.00-5.0) % Basophils % (0.0-0.4) % Absolute Granulocytes (1.4-6.9) x10^3/uL Basophils # (0-0.4) x10^3/uL D-Dimer (0.0-0.50) mg/L Sodium (137-145) mmol/L Potassium (3.5-5.1) mmol/L Chloride (98-107) mmol/L Carbon Dioxide (22-30) mmol/L Anion Gap (5-15) MEQ/L BUN (7-17) mg/dL Creatinine (0.52-1.04) mg/dL Estimated GFR ML/MIN Glucose (74-106) mg/dL Calcium (8.4-10.2) mg/dL Total Bilirubin (0.2-1.3) mg/dL AST (14-36) U/L ALT (0-35) U/L Alkaline Phosphatase (38-126) U/L Troponin I 0.014 (0.000-0.034) ng/mL Serum Total Protein (6.3-8.2) g/dL Albumin (3.5-5.0) g/dL Urine Color (Yellow) Urine Appearance (Clear) Urine pH (4.6-8.0) Ur Specific [place] (1.005-1.030) Urine Protein (Negative) Urine Glucose (UA) (Negative) mg/dL Urine Ketones (Negative) Urine Blood (Negative) Urine Nitrite (Negative) Urine Bilirubin (Negative) Urine Urobilinogen (0.2) mg/dL Ur Leukocyte Esterase (Negative) Urine Microscopic RBC (0-5) /HPF Urine Microscopic WBC (0-5) /HPF Ur Epithelial Cells (None Seen) /HPF Urine Bacteria (None Seen) /HPF Urine Culture Reflexed (NO) Radiology Exams: Radiology Procedures Category Date Time Status ABDOMEN AND PELVIS W/0 CONTRAS [CT] Stat Exams 09/17/23 16:30 Taken CHEST 1 VIEW (PORTABLE) Stat Exams 09/17/23 14:38 Completed CHEST WITHOUT CONTRAST [CT] Stat Exams 09/17/23 16:30 Taken Assessment/Plan (1) UTI (urinary tract infection) Current Visit: Yes Status: Acute Assessment & Plan: -U/A reviewed and suspicious for UTI, will treat empirically with Rocephin, follow cultures Code(s): N39.0 - URINARY TRACT INFECTION, SITE NOT SPECIFIED (2) Cough Current Visit: Yes Status: Acute Assessment & Plan: -CXR with no acute cardiopulmonary process -CT pending -Judson fraire Code(s): R05.9 - COUGH, UNSPECIFIED (3) Essential hypertension Current Visit: Yes Status: Acute Assessment & Plan: -Resume home medication, consider dose adjustment if needed VTE lovenox PPI: protonix Dispo 1-2 days Code(s): I10 - ESSENTIAL (PRIMARY) HYPERTENSION (4) Leukocytosis Current Visit: Yes Status: Acute Assessment & Plan: -secondary to UTI, will treat empirically with ceftriaxone, follow cultures Code(s): D72.829 - ELEVATED WHITE BLOOD CELL COUNT, UNSPECIFIED (5) Abnormal finding on imaging Current Visit: Yes Status: Acute Assessment & Plan: -CT ab/pelv/chest demonstrating . Multilevel lumbar radiolucent lesions as detailed favoring vertebral hemangiomas. Osteolytic malignancy not completely excluded in right clinical setting. -MRI T/L spine ordered and pending Code(s): R93.89 - ABNORMAL FINDINGS ON DX IMAGING OF OTH BODY STRUCTURES
[2023-09-18 05:20] LABS: Absolute Neutrophil Ct (ANC) 6.44 x10^3/uL (1.4-6.9); BASOPHIL % 0.3 % (0.0-0.4); Basophil (Absolute #) 0.03 x10^3/uL (0-0.4); Hematocrit 28.2 % (35-47); Hemoglobin 8.6 g/dL (12.0-16.0); IMMATURE GRAN # 0.03 x10^3u/L (0.00-0.03); IMMATURE GRAN % 0.3 % (0.00-0.4); Lymphocyte (Absolute #) 2.41 x10^3/uL (1.0-4.6); Mean Cell Volume 89.2 fL (78-100); Mean Corpuscular Hemoglobin 27.2 pg (26-32); Mean Corpuscular Hgb Concent. 30.5 g/dL (32-36); Mean Platelet Volume 9.9 fL (7.5-11.0); Monocyte (Absolute #) 0.64 x10^3/uL (0.0-1.3); Monocytes % 6.6 % (0.0-12.0); Neutrophil % 66.8 % (36.0-66.0); Platelet Count 328 x10^3/uL (150-450); Red Blood Count 3.16 x10^6/uL (4.1-5.4); Red Cell Distribution Width 17.4 % (11.5-14.0); White Blood Count 9.7 x10^3/uL (4.0-10.5)
[2023-09-18 05:42] LABS: ANION GAP 8.2 MEQ/L (5-15); Calcium 8.5 mg/dL (8.4-10.2); Creatinine 1 0.54 mg/dL (0.52-1.04); EST GLOMERULAR FILTRATION RATE 91.3 ML/MIN; Potassium 3.9 mmol/L (3.5-5.1)
--- NOTE | 2023-09-18 08:45 | XRAY ---
Indication: Left costovertebral angle pain. Multiple contiguous axial images obtained through the chest without contrast. Comparison: None Right middle lobe and lingula demonstrates minimal jxts-zj-kjw-like opacities favoring bronchiolitis. Elsewhere minimal scattered peripheral fibrosis/scarring and small right upper lobe calcified granuloma. No consolidation, effusion, or pneumothorax. Heart not enlarged with scattered coronary calcifications. Aorta mildly arteriosclerotic without aneurysm. Small mediastinal and left hilar calcified nodes. Bony thorax intact with osteopenia, mild degenerative changes throughout spine, and old sternum fracture. T1/T5/T8/T9 vertebral bodies demonstrate radiolucent lesions with striations favoring vertebral hemangiomas. Osteolytic malignancy not completely excluded in right clinical setting. CT abdomen/pelvis reported separately. Impression: 1. Right middle lobe and lingula [id number]-like opacities. Rule out bronchiolitis. 2. Multilevel vertebral radiolucent lesions favoring vertebral hemangiomas. Osteolytic malignancy not completely excluded in right clinical setting. 3. Chronic findings including arteriosclerotic disease, chronic bony findings, and old granulomatous disease.
--- NOTE | 2023-09-18 08:50 | XRAY ---
Indication: Left costovertebral angle pain. Multiple contiguous axial images obtained through the abdomen and pelvis without contrast. Comparison: None CT chest reported separately. Previous gastric bypass surgery. Noncontrasted stomach and bowel loops appear nonobstructed. Scattered sigmoid diverticulosis without diverticulitis. Cholecystectomy and appendectomy reported. Atrophic uterus versus hysterectomy. Tiny splenic calcified granulomas. No free fluid/air. Remaining liver, pancreas, spleen, adrenal glands, kidneys, ureters, and bladder are unremarkable for noncontrast exam. Moderate scattered arteriosclerotic calcifications without AAA. Osseous structures intact with osteopenia, L1/L4 Schmorl nodes, mild/moderate degenerative changes throughout spine, and mild degenerative changes both hips. L1/L3/L4/L5 vertebral bodies demonstrate radiolucencies with striations favoring vertebral hemangiomas. Osteolytic malignancy not completely excluded and right clinical setting. No ventral or inguinal hernias. Impression: 1. Multilevel lumbar radiolucent lesions as detailed favoring vertebral hemangiomas. Osteolytic malignancy not completely excluded in right clinical setting. 2. Chronic findings including sigmoid diverticulosis, chronic bony findings, arteriosclerotic disease, and old granulomatous disease.
[2023-09-18] MEDS: TORAdol 30 mg Injection IV PRN ×2 (08:58→15:37)
[2023-09-18] MEDS: Sodium Chloride 0.9% 1000 ML 1,000 ML IV SCH ×2 (09:27→21:17)
[2023-09-18] MEDS ORDERED: Coreg PO SCH (10:00)
[2023-09-18] MEDS ORDERED: VERAPAMIL HCL 100 MG PO SCH (10:00)
[2023-09-18] MEDS ORDERED: CALAN 80 MG PO SCH (10:00)
[2023-09-18] MEDS: Pepcid 20 MG PO SCH ×2 (11:07→21:18)
[2023-09-18] MEDS: CALAN 80 MG PO SCH ×2 (11:07→21:18)
[2023-09-18] MEDS: ENOXAPARIN SODIUM SQ SCH (11:07)
[2023-09-18] MEDS: Acidophilus TABLET PO SCH (11:08)
[2023-09-18] MEDS: Coreg PO SCH ×2 (11:08→21:18)
[2023-09-18] MEDS ORDERED: ROCEPHIN 1 GM / 100 ML NaCl 1 GM/100 ML IVPB IV SCH (22:00)
--- NOTE | 2023-09-19 05:03 | PCM.NOTE ---
Date and Time: 09/19/23 0503 Subjective Assessment: HPI: is a 83 year old female with a history of HTN and recent COVID (10 days ago) who presents to the hospital with a complaint of left sided rib and upper back pain (intensity 8/10) for the past [address] imaging showing Multilevel lumbar radiolucent lesions as detailed favoring vertebral hemangiomas. Osteolytic malignancy not completely excluded. Right middle lobe and lingula ilis-pd-cdi-like opacities favoring bronchiolitis. MRI pending. Admitted for UTI/pyelonephritis. Initial labs with leukocytosis and mild hyponatremia. Current treatment with Rocephin. OBJECTIVE DATA Vital Signs: Vital Signs - 24 hr Temp Pulse Resp BP Pulse Ox 09/18/23 23:44 99.0 F 73 16 137/64 95 09/18/23 20:00 97.8 F 79 18 149/70 94 L 09/18/23 16:00 98.2 F 74 17 95 09/18/23 07:47 98.2 F 76 16 142/71 92 L Pain Assessment - Last Documented Pain Intensity 0 Pain Scale Used 0-10 Pain Scale Intake and Output: Intake & Output 09/16/23 09/17/23 09/18/23 09/19/23 11:59 11:59 11:59 11:59 Intake Total 600 1466 Output Total 450 500 Balance 150 966 Weight 67.7 kg Lab Results: Lab Results-Last 24 Hours 09/18/23 09/18/23 Range/Units 04:55 04:55 WBC 9.7 (4.0-10.5) x10^3/uL RBC 3.16 L (4.1-5.4) x10^6/uL Hgb 8.6 L (12.0-16.0) g/dL Hct 28.2 L (35-47) % MCV 89.2 (78-100) fL MCH 27.2 (26-32) pg MCHC 30.5 L (32-36) g/dL RDW 17.4 H (11.5-14.0) % Plt Count 328 (150-450) x10^3/uL MPV 9.9 (7.5-11.0) fL Gran % 66.8 H (36.0-66.0) % Immature Gran % (Auto) 0.3 (0.00-0.4) % Nucleat RBC Rel Count 0.0 (0.00-0.1) % Eos # (Auto) 0.10 (0-0.5) x10^3/uL Immature Gran # (Auto) 0.03 (0.00-0.03) x10^3u/L Absolute Lymphs (auto) 2.41 (1.0-4.6) x10^3/uL Absolute Monos (auto) 0.64 (0.0-1.3) x10^3/uL Absolute Nucleated RBC 0.00 (0.00-0.01) x10^3u/L Lymphocytes % 25.0 (24.0-44.0) % Monocytes % 6.6 (0.0-12.0) % Eosinophils % 1.0 (0.00-5.0) % Basophils % 0.3 (0.0-0.4) % Absolute Granulocytes 6.44 (1.4-6.9) x10^3/uL Basophils # 0.03 (0-0.4) x10^3/uL Sodium 135 L (137-145) mmol/L Potassium 3.9 (3.5-5.1) mmol/L Chloride 105 (98-107) mmol/L Carbon Dioxide 26 (22-30) mmol/L Anion Gap 8.2 (5-15) MEQ/L BUN 20 H (7-17) mg/dL Creatinine 0.54 (0.52-1.04) mg/dL Estimated GFR 91.3 ML/MIN Glucose 88 (74-106) mg/dL Calcium 8.5 (8.4-10.2) mg/dL Radiology Exams: Radiology Procedures Category Date Time Status ABDOMEN AND PELVIS W/0 CONTRAS [CT] Stat Exams 09/17/23 16:30 Completed CHEST 1 VIEW (PORTABLE) Stat Exams 09/17/23 14:38 Completed CHEST WITHOUT CONTRAST [CT] Stat Exams 09/17/23 16:30 Completed Assessment/Plan (1) UTI (urinary tract infection) Current Visit: Yes Status: Acute Assessment & Plan: -U/A reviewed and suspicious for UTI, will treat empirically with Rocephin, follow cultures Code(s): N39.0 - URINARY TRACT INFECTION, SITE NOT SPECIFIED (2) Cough Current Visit: Yes Status: Acute Assessment & Plan: -CXR with no acute cardiopulmonary process -CT pending -Judson fraire Code(s): R05.9 - COUGH, UNSPECIFIED (3) Essential hypertension Current Visit: Yes Status: Acute Assessment & Plan: -Resume home medication, consider dose adjustment if needed VTE lovenox PPI: protonix Dispo 1-2 days Code(s): I10 - ESSENTIAL (PRIMARY) HYPERTENSION (4) Leukocytosis Current Visit: Yes Status: Acute Assessment & Plan: -secondary to UTI, will treat empirically with ceftriaxone, follow cultures Code(s): D72.829 - ELEVATED WHITE BLOOD CELL COUNT, UNSPECIFIED (5) Abnormal finding on imaging Current Visit: Yes Status: Acute Assessment & Plan: -CT ab/pelv/chest demonstrating . Multilevel lumbar radiolucent lesions as detailed favoring vertebral hemangiomas. Osteolytic malignancy not completely excluded in right clinical setting. -MRI T/L spine ordered and pending Code(s): N39.0 - URINARY TRACT INFECTION, SITE NOT SPECIFIED (2) Cough Current Visit: Yes Status: Acute Code(s): R05.9 - COUGH, UNSPECIFIED (3) Essential hypertension Current Visit: Yes Status: Acute Code(s): I10 - ESSENTIAL (PRIMARY) HYPERTENSION (4) Leukocytosis Current Visit: Yes Status: Acute Code(s): D72.829 - ELEVATED WHITE BLOOD CELL COUNT, UNSPECIFIED (5) Abnormal finding on imaging Current Visit: Yes Status: Acute Code(s): R93.89 - ABNORMAL FINDINGS ON DX IMAGING OF OTH BODY STRUCTURES
[2023-09-19 05:15] VITALS: BP 183/78
[2023-09-19 05:46] LABS: Absolute Neutrophil Ct (ANC) 6.12 x10^3/uL (1.4-6.9); BASOPHIL % 0.3 % (0.0-0.4); Basophil (Absolute #) 0.03 x10^3/uL (0-0.4); Eosinophil % 1.1 % (0.00-5.0); Hematocrit 28.2 % (35-47); Hemoglobin 8.7 g/dL (12.0-16.0); IMMATURE GRAN # 0.04 x10^3u/L (0.00-0.03); IMMATURE GRAN % 0.5 % (0.00-0.4); Lymphocytes % 20.7 % (24.0-44.0); Mean Cell Volume 89.8 fL (78-100); Mean Corpuscular Hemoglobin 27.7 pg (26-32); Mean Corpuscular Hgb Concent. 30.9 g/dL (32-36); Mean Platelet Volume 9.4 fL (7.5-11.0); Monocyte (Absolute #) 0.62 x10^3/uL (0.0-1.3); Monocytes % 7.1 % (0.0-12.0); Neutrophil % 70.3 % (36.0-66.0); Platelet Count 301 x10^3/uL (150-450); Red Blood Count 3.14 x10^6/uL (4.1-5.4); Red Cell Distribution Width 17.6 % (11.5-14.0); White Blood Count 8.7 x10^3/uL (4.0-10.5)
[2023-09-19 06:10] LABS: ALBUMIN 3.1 g/dL (3.5-5.0); ANION GAP 7.5 MEQ/L (5-15); BILIRUBIN,TOTAL 0.4 mg/dL (0.2-1.3); Calcium 8.4 mg/dL (8.4-10.2); Creatinine 1 0.42 mg/dL (0.52-1.04); Potassium 3.8 mmol/L (3.5-5.1); Total Protein 6.2 g/dL (6.3-8.2)
[2023-09-19 07:52] VITALS: PULSE 70; RESP 17; TEMP 98.2; O2SAT 95
[2023-09-19] MEDS: Sodium Chloride 0.9% 1000 ML 1,000 ML IV SCH (07:54)
[2023-09-19] MEDS: Coreg PO SCH (08:27)
[2023-09-19] MEDS: Acidophilus TABLET PO SCH (08:28)
[2023-09-19] MEDS: Pepcid 20 MG PO SCH (08:28)
[2023-09-19] MEDS: ENOXAPARIN SODIUM SQ SCH (08:28)
[2023-09-19] MEDS: CALAN 80 MG PO SCH (08:28)
[2023-09-19] MEDS: TORAdol 30 mg Injection IV PRN (10:20)
--- NOTE | 2023-09-19 10:54 | PCM.DS ---
Discharge Summary Date of Admission: 09/17/23 20:56 Date of Discharge: 09/19/23 Admitting Physician: JANET MADRID MD Primary Care Provider: IRMA KIRKLAND Allergies Allergies No Known Drug Allergies Allergy (Verified 09/17/23 21:26) Hospital Summary - Hospital Course Hospital Course: is a 83 year old female with a history of HTN and recent COVID (10 days ago) who presents to the hospital with a complaint of left sided rib and upper back pain (intensity 8/10) for the past [address] imaging showing Multilevel lumbar radiolucent lesions as detailed favoring vertebral hemangiomas. Osteolytic malignancy not completely excluded. Right middle lobe and lingula [id number]-like opacities favoring bronchiolitis. Patient states t hat the hemangioma is chronic, and she has been worked up as OP. She does not wish to further evaluate this. Admitted for UTI/pyelonephritis. Initial labs with leukocytosis and mild hyponatremia. IP treatment with Rocephin. Labs now at baseline. No longer with back pain. Will send home on cefdinir x 7 days. Advised follow up with PCP for resolution of UTI. BP has also been elevated at times during hospitalization. Patient advised to keep BP log at home until follow up with PCP, may need adjustments to medications. Discharge Note New Diagnosis:UTI New Medications: Cefdinir x 7 days Follow Up: PCP Latest Assessment & Plan (1) UTI (urinary tract infection) Current Visit: Yes Status: Acute Assessment & Plan: -U/A reviewed and suspicious for UTI, will treat empirically with Rocephin, follow cultures Code(s): N39.0 - URINARY TRACT INFECTION, SITE NOT SPECIFIED (2) Cough Current Visit: Yes Status: Acute Assessment & Plan: -CXR with no acute cardiopulmonary process -CT pending -Judson fraire Code(s): R05.9 - COUGH, UNSPECIFIED (3) Essential hypertension Current Visit: Yes Status: Acute Assessment & Plan: -Resume home medication, consider dose adjustment if needed VTE lovenox PPI: protonix Dispo 1-2 days Code(s): I10 - ESSENTIAL (PRIMARY) HYPERTENSION (4) Leukocytosis Current Visit: Yes Status: Acute Assessment & Plan: -secondary to UTI, will treat empirically with ceftriaxone, follow cultures Code(s): D72.829 - ELEVATED WHITE BLOOD CELL COUNT, UNSPECIFIED (5) Abnormal finding on imaging Current Visit: Yes Status: Acute Assessment & Plan: -CT ab/pelv/chest demonstrating . Multilevel lumbar radiolucent lesions as detailed favoring vertebral hemangiomas. Osteolytic malignancy not completely excluded in right clinical setting. -MRI T/L spine ordered and pending I spent 35 minutes [id number] with the patient on the day of discharge performing discharge exam, discussing hospital stay and discharge instructions with patient and caregivers, preparation of discharge records, prescriptions & referral forms and addressing any questions/concerns the patient had as documented above. - Vitals & Intake/Output Vital Signs: Vital Signs Temperature 98.2 F 09/19/23 07:51 Pulse Rate 70 09/19/23 07:51 Respiratory Rate 17 09/19/23 07:51 Blood Pressure 183/78 09/19/23 04:00 O2 Sat by Pulse Oximetry 95 09/19/23 07:51 Intake & Output: Intake & Output 09/16/23 09/17/23 09/18/23 09/19/23 11:59 11:59 11:59 11:59 Intake Total 600 2921 Output Total 450 1400 Balance 150 1521 Weight 67.7 kg - Lab Result Diagrams: 09/19/23 05:37 09/19/23 05:37 Lab Results-Last 24 Hrs: Lab Results-Last 24 Hours 09/19/23 09/19/23 Range/Units 05:37 05:37 WBC 8.7 (4.0-10.5) x10^3/uL RBC 3.14 L (4.1-5.4) x10^6/uL Hgb 8.7 L (12.0-16.0) g/dL Hct 28.2 L (35-47) % MCV 89.8 (78-100) fL MCH 27.7 (26-32) pg MCHC 30.9 L (32-36) g/dL RDW 17.6 H (11.5-14.0) % Plt Count 301 (150-450) x10^3/uL MPV 9.4 (7.5-11.0) fL Gran % 70.3 H (36.0-66.0) % Immature Gran % (Auto) 0.5 H (0.00-0.4) % Nucleat RBC Rel Count 0.0 (0.00-0.1) % Eos # (Auto) 0.10 (0-0.5) x10^3/uL Immature Gran # (Auto) 0.04 H (0.00-0.03) x10^3u/L Absolute Lymphs (auto) 1.80 (1.0-4.6) x10^3/uL Absolute Monos (auto) 0.62 (0.0-1.3) x10^3/uL Absolute Nucleated RBC 0.00 (0.00-0.01) x10^3u/L Lymphocytes % 20.7 L (24.0-44.0) % Monocytes % 7.1 (0.0-12.0) % Eosinophils % 1.1 (0.00-5.0) % Basophils % 0.3 (0.0-0.4) % Absolute Granulocytes 6.12 (1.4-6.9) x10^3/uL Basophils # 0.03 (0-0.4) x10^3/uL Sodium 137 (137-145) mmol/L Potassium 3.8 (3.5-5.1) mmol/L Chloride 109 H (98-107) mmol/L Carbon Dioxide 24 (22-30) mmol/L Anion Gap 7.5 (5-15) MEQ/L BUN 14 (7-17) mg/dL Creatinine 0.42 L (0.52-1.04) mg/dL Estimated GFR 97.0 ML/MIN Glucose 94 (74-106) mg/dL Calcium 8.4 (8.4-10.2) mg/dL Total Bilirubin 0.40 (0.2-1.3) mg/dL AST 18 (14-36) U/L ALT 7 (0-35) U/L Alkaline Phosphatase 93 (38-126) U/L Serum Total Protein 6.2 L (6.3-8.2) g/dL Albumin 3.1 L (3.5-5.0) g/dL Micro Results-Entire Visit: Microbiology 09/17/23 16:08 Urine Culture - Final Urine, Void Escherichia Coli - Radiology Exams Ordered Rad Exams-Entire Visit: Radiology Procedures Category Date Time Status ABDOMEN AND PELVIS W/0 CONTRAS [CT] Stat Exams 09/17/23 16:30 Completed CHEST 1 VIEW (PORTABLE) Stat Exams 09/17/23 14:38 Completed CHEST WITHOUT CONTRAST [CT] Stat Exams 09/17/23 16:30 Completed - Procedures and Test Procedures and Tests throughout Hospitalization: Therapy Orders & Screens 09/17/23 22:59 PT Eval & Treat ( Order) ONCE Reason for Eval:: assess ambulatory needs. Diagnosis: UTI Discharge Exam General Appearance: no apparent distress Neurologic Exam: alert, oriented x 3, cooperative Eye Exam: PERRL Ears, Nose, Throat Exam: normal ENT inspection Neck Exam: normal inspection Respiratory Exam: normal breath sounds, lungs clear Cardiovascular Exam: regular rate/rhythm, normal heart sounds Gastrointestinal/Abdomen Exam: soft, normal bowel sounds Pelvic Exam: deferred Rectal Exam: deferred Back Exam: normal inspection Skin Exam: normal color Final Diagnosis/Problem List - Final Discharge Diagnosis/Problem (1) UTI (urinary tract infection) Current Visit: Yes Status: Acute Code(s): N39.0 - URINARY TRACT INFECTION, SITE NOT SPECIFIED (2) Cough Current Visit: Yes Status: Resolved Code(s): R05.9 - COUGH, UNSPECIFIED (3) Essential hypertension Current Visit: Yes Status: Chronic Code(s): I10 - ESSENTIAL (PRIMARY) HYPERTENSION (4) Leukocytosis Current Visit: Yes Status: Resolved Code(s): D72.829 - ELEVATED WHITE BLOOD CELL COUNT, UNSPECIFIED (5) Abnormal finding on imaging Current Visit: Yes Status: Chronic Code(s): R93.89 - ABNORMAL FINDINGS ON DX IMAGING OF OTH BODY STRUCTURES - Discharge Disposition: Home, Self-Care Condition: Stable Prescriptions: New Lactobacillus Acidophilus [Acidophilus TABLET] 1 tab PO DAILY tablet Cefdinir 300 mg PO BID 7 Days #14 cap Continue Verapamil HCl [Verapamil ER Pm] 100 mg PO DAILY Carvedilol [Coreg ] 6.25 mg PO BID Instructions: Urinary Tract Infection, Adult (DC) Follow up with: IRMA KIRKLAND [Primary Care Provider] -
== END 2023-09-19 11:42 | disposition home or self-care (01) ==
LOC: ED 14:05 → MED SURG 20:56
PROVIDERS: ADMIT Internal Medicine; ATTEND Internal Medicine
DX: N39.0 Urinary tract infection, site not specified (principal); R05.9 Cough, unspecified; I10 Essential (primary) hypertension; D72.829 Elevated white blood cell count, unspecified; R93.89 Abnormal findings on diagnostic imaging of other specified body structures; I25.2 Old myocardial infarction; Z79.899 Other long term (current) drug therapy; Z20.828 Contact with and (suspected) exposure to other viral communicable diseases; Z86.16 Personal history of COVID-19
CPT/HCPCS: 36000; 36415; 71045; 71250; 74176; 80048; 80053; 81001; 84484; 85025; 85379; 87040; 87077; 87086; 87186; 93005; 96374; 97161; 99284; G0378; Q3014; J0696; J1650; J1885; A9270-GY

== ENCOUNTER 2023-12-05 09:27 | Observation (INO) | payer MEDICARE, OTHER ==
[2023-12-05] MEDS: Sodium Chloride 0.9% 1000 ML 1,000 ML IV SCH ×2 (10:22→21:02)
--- NOTE | 2023-12-05 10:46 | XRAY ---
Indication: Syncope. Comparison: September 17, 2023 Portable chest again demonstrates COPD and a few tiny calcified granulomas. New minimal left base subsegmental atelectasis/scarring. Heart not enlarged. Bony thorax intact again with osteopenia and degenerative changes.
--- NOTE | 2023-12-05 10:48 | XRAY ---
Indication: Syncope versus seizure. Multiple contiguous axial images obtained through the head without contrast. Comparison: None Age-appropriate global atrophy and mild periventricular degenerative micro-ischemia bilaterally. No acute intracranial hemorrhage, abnormal extra-axial fluid collection, or mass effect. Fourth ventricle is midline without hydrocephalus. Bony calvarium intact with mild diffuse calvarial thickening commonly seen with chronic antiseizure medication. Visualized paranasal sinuses and mastoid air cells are clear. Impression: Nonacute senile brain. Diffuse calvarial thickening commonly seen with chronic antiseizure medication.
[2023-12-05 10:58] LABS: Absolute Neutrophil Ct (ANC) 7.95 x10^3/uL (1.4-6.9); BASOPHIL % 0.4 % (0.0-0.4); Basophil (Absolute #) 0.04 x10^3/uL (0-0.4); Eosinophil % 0.4 % (0.00-5.0); Eosinophil (Absolute #) 0.04 x10^3/uL (0-0.5); Hematocrit 34.5 % (35-47); Hemoglobin 10.8 g/dL (12.0-16.0); IMMATURE GRAN # 0.03 x10^3u/L (0.00-0.03); IMMATURE GRAN % 0.3 % (0.00-0.4); Lymphocytes % 14.2 % (24.0-44.0); Mean Corpuscular Hemoglobin 29.4 pg (26-32); Mean Corpuscular Hgb Concent. 31.3 g/dL (32-36); Mean Platelet Volume 9.8 fL (7.5-11.0); Monocyte (Absolute #) 0.42 x10^3/uL (0.0-1.3); Monocytes % 4.3 % (0.0-12.0); Neutrophil % 80.4 % (36.0-66.0); Platelet Count 336 x10^3/uL (150-450); Red Blood Count 3.67 x10^6/uL (4.1-5.4); Red Cell Distribution Width 18.3 % (11.5-14.0); White Blood Count 9.9 x10^3/uL (4.0-10.5)
[2023-12-05 11:13] LABS: ALBUMIN 3.6 g/dL (3.5-5.0); ANION GAP 10.5 MEQ/L (5-15); BILIRUBIN,TOTAL 0.3 mg/dL (0.2-1.3); Calcium 9.1 mg/dL (8.4-10.2); Creatinine 1 0.57 mg/dL (0.52-1.04); EST GLOMERULAR FILTRATION RATE 90.1 ML/MIN; MAGNESIUM 2.2 mg/dL (1.6-2.3); Total Protein 7.1 g/dL (6.3-8.2)
--- NOTE | 2023-12-05 13:45 | ERPHSYRPT ---
- History of Present Illness Time Seen by Provider: 12/05/23 10:17 Source: patient, family Patient Subjective Stated Complaint: pt her for a possible seizure today at home. she became nauseated and son helped her to bathroom when she had what family described was a seizure. no tremors, states came to in about a minute or so.she denies any injury, states son helped her to ground Triage Nursing Assessment: pt arrived per ambulance alert, resp easy, skin w/d/p. 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 Patient apparently got nauseated, was heading to go to the bathroom with her son holding her and she collapsed with no seizure-like activity noticed. She was out for almost a minute and was back to normal immediately. No postictal phase. She denies having any chest pain palpitations or shortness of breath before or after the episode. No numbness tingling or focal weakness reported. Patient and family not sure whether it was a seizure or syncope. She currently denies any symptoms but some generalized weakness. Allergies/Adverse Reactions: No Known Drug Allergies Allergy (Verified 12/05/23 09:36) Home Medications: Verapamil HCl [Verapamil ER Pm] 100 mg PO DAILY 03/06/16 [History] Carvedilol [Coreg ] 6.25 mg PO BID 09/17/23 [History] HydrALAzine HCL 25 MG TAB [Apresoline 25 MG TABLET] 25 mg PO DAILY [History] Lacosamide [Motpoly Xr] 150 mg PO DAILY 12/05/23 [History] Molnupiravir [Molnupiravir (Eua)] 200 mg PO DAILY 12/05/23 [History] Hx Tetanus, Diphtheria Vaccination/Date Given: No Hx Influenza Vaccination/Date Given: Yes Hx Pneumococcal Vaccination/Date Given: No Immunizations Up to Date: Yes Travel Risk - International Travel Have you traveled outside of the country in past 3 weeks: No - Emerging Infectious Disease Are you exhibiting symptoms associated with any current EIDs: No - Review of Systems Constitutional: Fatigue Eyes: No Symptoms Ears, Nose, & Throat: No Symptoms Respiratory: No Symptoms Cardiac: No Symptoms Abdominal/Gastrointestinal: Nausea Genitourinary Symptoms: No Symptoms Musculoskeletal: Arthralgias Skin: No Symptoms Endocrine: No Symptoms Immunological/Allergic: No Symptoms - Past Medical History Pertinent Past Medical History: Yes Neurological History: Seizures, TIA ENT History: Cataracts Cardiac History: Arrhythmia, Myocardial Infarction ([place]), Hypertension, Other Respiratory History: Sleep Apnea Endocrine Medical History: No Pertinent History Musculoskeletal History: Arthritis GI Medical History: Crohns Disease, GERD, Pancreatitis History: Other Psycho-Social History: Anxiety Female Reproductive Disorders: No Pertinent History Other Medical History: [place] in her 30's. incontinence - Past Surgical History Past Surgical History: Yes Neuro Surgical History: No Pertinent History Cardiac: Cardiac Catheterization Respiratory: No Pertinent History Gastrointestinal: Other, Appendectomy, Cholecystectomy Genitourinary: No Pertinent History Musculoskeletal: Orthopedic Surgery Female Surgical History: Hysterectomy Other Surgical History: BACK SURGERY,TUMOR REMOVAL - right flank and right leg\. gastric bypass- 1999 - Social History Smoking Status: Former smoker Exposure to second hand smoke: Yes Drug Use: none Patient Lives Alone: No - Nursing Vital Signs Nursing Vital Signs: Initial Vital Signs Temperature 97.2 F 12/05/23 09:41 Pulse Rate 64 12/05/23 09:41 Respiratory Rate 16 12/05/23 09:41 Blood Pressure 126/66 12/05/23 09:41 O2 Sat by Pulse Oximetry 96 12/05/23 09:41 Pain Scale Pain Intensity 0 - [place] Coma Scale Best Eye Response (Lydia): (4) open spontaneously Best Verbal Response (Lydia): (5) oriented Best Motor Response (Lydia): (6) obeys commands [place] Total: 15 - Physical Exam General Appearance: no apparent distress, alert Eye Exam: bilateral eye: normal inspection, PERRL, EOMI Ears, Nose, Throat Exam: normal ENT inspection, TMs normal, pharynx normal, moist mucous membranes Neck Exam: normal inspection, non-tender, supple, full range of motion Respiratory: normal breath sounds, lungs clear Cardiovascular: regular rate/rhythm, normal heart sounds Gastrointestinal: soft, normal bowel sounds, No tenderness Back Exam: normal inspection Extremity Exam: normal inspection, normal range of motion Mental Status: alert, oriented x 3, 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 Exam: normal hearing, normal speech, PERRL Coordination/Gait: normal finger to nose, normal cerebellar function Motor/Sensory: no motor deficit, no sensory deficit, no pronator drift, negative Babinski's sign DTR: bicep (R): 2+, bicep (L): 2+, knee (R): 2+, knee (L): 2+ Skin Exam: normal color SpO2 Interpretation: normal SpO2: 95 O2 Delivery: Room Air - Course EKG Interpreted by Me: RATE ([id number]), Sinus Rhythm, Left [place] Deviation, NORMAL IN TERVALS, Q-wave, Non-specific ST Changes Ordered Tests: Active Orders 24 hr Category Date Time Status Percher STAT Care 12/05/23 10:18 Active EKG-ER Only STAT Care 12/05/23 10:17 Active Orthostatic Vital Signs STAT Care 12/05/23 10:17 Active CHEST 1 VIEW (PORTABLE) Stat Exams 12/05/23 10:17 Completed HEAD WITHOUT CONTRAST [CT] Stat Exams 12/05/23 10:18 Completed CBC W DIFF Stat Lab 12/05/23 10:45 Completed CMP Stat Lab 12/05/23 10:45 Completed Lactic Acid Stat Lab 12/05/23 10:45 Completed MAGNESIUM Stat Lab 12/05/23 10:45 Completed NT PRO BNPII Stat Lab 12/05/23 10:45 Completed TROPONIN Q4H Lab 12/05/23 10:45 Completed TROPONIN Q4H Lab 12/05/23 14:30 Ordered TROPONIN Q4H Lab 12/05/23 18:30 Ordered UA W/RFX UR CULTURE Stat Lab 12/05/23 10:17 Ordered Transfer Order Routine Transfer 12/05/23 Ordered Medication Summary Generic Name Dose Route Start Last Admin Trade Name Freq PRN Reason Stop Dose Admin Sodium Chloride 1,000 mls @ 125 mls/hr 12/05/23 10:30 12/05/23 10:22 Sodium Chloride 0.9% 1000 Ml IV 01/04/24 10:29 125 mls/hr .Q8H SIMON Administration Lab/Rad Data: Laboratory Result Diagrams 12/05/23 10:45 12/05/23 10:45 Laboratory Results 12/05/23 12/05/23 12/05/23 Range/Units 10:45 10:45 10:45 WBC (4.0-10.5) x10^3/uL RBC (4.1-5.4) x10^6/uL Hgb (12.0-16.0) g/dL Hct (35-47) % MCV (78-100) fL MCH (26-32) pg MCHC (32-36) g/dL RDW (11.5-14.0) % Plt Count (150-450) x10^3/uL MPV (7.5-11.0) fL Gran % (36.0-66.0) % Immature Gran % (Auto) (0.00-0.4) % Nucleat RBC Rel Count (0.00-0.1) % Eos # (Auto) (0-0.5) x10^3/uL Immature Gran # (Auto) (0.00-0.03) x10^3u/L Absolute Lymphs (auto) (1.0-4.6) x10^3/uL Absolute Monos (auto) (0.0-1.3) x10^3/uL Absolute Nucleated RBC (0.00-0.01) x10^3u/L Lymphocytes % (24.0-44.0) % Monocytes % (0.0-12.0) % Eosinophils % (0.00-5.0) % Basophils % (0.0-0.4) % Absolute Granulocytes (1.4-6.9) x10^3/uL Basophils # (0-0.4) x10^3/uL Sodium 138 (135-145) mmol/L Potassium 4.0 (3.5-5.1) mmol/L Chloride 106 (98-107) mmol/L Carbon Dioxide 25 (22-30) mmol/L Anion Gap 10.5 (5-15) MEQ/L BUN 17 (7-17) mg/dL Creatinine 0.57 (0.52-1.04) mg/dL Estimated GFR 90.1 ML/MIN Glucose 101 (74-106) mg/dL Lactic Acid 0.9 (0.4-2.0) Calcium 9.1 (8.4-10.2) mg/dL Magnesium 2.2 (1.6-2.3) mg/dL Total Bilirubin 0.30 (0.2-1.3) mg/dL AST 20 (14-36) U/L ALT 11 (0-35) U/L Alkaline Phosphatase 105 (38-126) U/L Troponin I < 0.012 (0.000-0.033) ng/mL NT-Pro-B Natriuret Pep 214 (<300) pg/mL Serum Total Protein 7.1 (6.3-8.2) g/dL Albumin 3.6 (3.5-5.0) g/dL 12/05/23 Range/Units 10:45 WBC 9.9 (4.0-10.5) x10^3/uL RBC 3.67 L (4.1-5.4) x10^6/uL Hgb 10.8 L (12.0-16.0) g/dL Hct 34.5 L (35-47) % MCV 94.0 (78-100) fL MCH 29.4 (26-32) pg MCHC 31.3 L (32-36) g/dL RDW 18.3 H (11.5-14.0) % Plt Count 336 (150-450) x10^3/uL MPV 9.8 (7.5-11.0) fL Gran % 80.4 H (36.0-66.0) % Immature Gran % (Auto) 0.3 (0.00-0.4) % Nucleat RBC Rel Count 0.0 (0.00-0.1) % Eos # (Auto) 0.04 (0-0.5) x10^3/uL Immature Gran # (Auto) 0.03 (0.00-0.03) x10^3u/L Absolute Lymphs (auto) 1.40 (1.0-4.6) x10^3/uL Absolute Monos (auto) 0.42 (0.0-1.3) x10^3/uL Absolute Nucleated RBC 0.00 (0.00-0.01) x10^3u/L Lymphocytes % 14.2 L (24.0-44.0) % Monocytes % 4.3 (0.0-12.0) % Eosinophils % 0.4 (0.00-5.0) % Basophils % 0.4 (0.0-0.4) % Absolute Granulocytes 7.95 H (1.4-6.9) x10^3/uL Basophils # 0.04 (0-0.4) x10^3/uL Sodium (135-145) mmol/L Potassium (3.5-5.1) mmol/L Chloride (98-107) mmol/L Carbon Dioxide (22-30) mmol/L Anion Gap (5-15) MEQ/L BUN (7-17) mg/dL Creatinine (0.52-1.04) mg/dL Estimated GFR ML/MIN Glucose (74-106) mg/dL Lactic Acid (0.4-2.0) Calcium (8.4-10.2) mg/dL Magnesium (1.6-2.3) mg/dL Total Bilirubin (0.2-1.3) mg/dL AST (14-36) U/L ALT (0-35) U/L Alkaline Phosphatase (38-126) U/L Troponin I (0.000-0.033) ng/mL NT-Pro-B Natriuret Pep (<300) pg/mL Serum Total Protein (6.3-8.2) g/dL Albumin (3.5-5.0) g/dL - Progress Progress: improved Progress Note: 12/05/23 13:46 83 years old is evaluated in ER for syncopal episode with no head injury. Patient has history of seizure but no seizure-like activity noticed. Patient has no postictal phase. Nonfocal neuroexam throughout stay in the ER. EKG is normal sinus with no acute ST elevation, does have old Q waves/infarct. Given gentle hydration, normal white count, fairly unremarkable chemistries and negative troponins. Chest x-ray negative. CT head negative for any acute intracranial findings. I believe with patient age, multiple risk factors she n eeds further evaluation for syncope. I have shared the results of workup with patient and family and recommended observation admission for further evaluation. Discussed with Dr. Lopez, reviewed history, workup and agreed with admission. Discussed with Dr.: Other (Dr. Narayanan) Will see patient in: hospital (observation) Counseled pt/family regarding: lab results, diagnosis, rad results Medical Desision Making - Independent Historian Additional History obtained from: Child - Discussion of managment Care discussed with:: hospitalist Reviewed:: Test results Agreed on:: Treatment plan, place in obs Will see patient: in hospital - Diagnostic Testing Diagnostic test were ordered, analyzed, and reviewed by me: Yes Radiological Interpretation: Interpreted by me, Reviewed by me - Risk of complications The pt has a high risk of morbidity or mortality based on: Decision regarding hospitilization or escalation of hosp level of care - Departure Departure Disposition: Observation Clinical Impression: Syncope and collapse Condition: Stable Critical Care Time: No Referrals: IRMA KIRKLAND [Primary Care Provider] - Follow up/PCP as directed
--- NOTE | 2023-12-05 15:01 | PCM.HP ---
History of Present Illness - Chief Complaint Chief Complaint: Syncope and collapse Date: 12/05/23 History of Present Illness: is a 83 year old female with a pmhx of seizures, TIA, [place], HTN, and anxiety who presented to [facility] 12/05/23 after experiencing a syncopal episode at home. Patient reports that she does not remember much preceding the episode but she does remember that she was sitting her chair and that she had become nauseated as her son was helping her to the bathroom. She reports that her son told her she had lost consciousness. She states she did not fall or experience trauma as her son was holding on to her. No seizure-like activity was witnesse d. No postical phase. Per family report in ED, patient recovered quickly, less than a minute. She denies previous similar episodes, shortness of breath, headaches, visual changes, palpitations, or chest pain. No recent sick contacts or illness. Patient does report she has a past history seizures - last one several years ago, and this episode was not similar to previous seizure activity. She takes Vimpat daily but does not follow with neurology. There is also a history of arrhythmias, she thinks AFIB, but is not sure. In ED, vitals unremarkable. EKG is normal sinus with no acute ST elevation, does have old Q waves/infarct. CT head negative for any acute intracranial findings. Chest x-ray showing COPD with no acute cardiopulmonary processes. Labs with normocytic anemia with hgb at 10.8, otherwise unremarkable. Patient admitted for evaluation of syncope. - Review of Systems Constitutional: No Symptoms Eyes: No Symptoms Ears, Nose, & Throat: No Symptoms Respiratory: No Symptoms Cardiac: No Symptoms Abdominal/Gastrointestinal: Nausea Genitourinary Symptoms: No Symptoms Musculoskeletal: No Symptoms Skin: No Symptoms Neurological: No Symptoms Psychological: No Symptoms Endocrine: No Symptoms Hematologic/Lymphatic: No Symptoms Immunological/Allergic: No Symptoms Medications & Allergies Home Medications: Home Medication List Verapamil HCl [Verapamil ER Pm] 100 mg PO DAILY 03/06/16 [History Confirmed 12/05/23] Carvedilol [Coreg ] 6.25 mg PO BID 09/17/23 [History Confirmed 12/05/23] HydrALAzine HCL 25 MG TAB [Apresoline 25 MG TABLET] 25 mg PO DAILY 12/05/23 [History Confirmed 12/05/23] Lacosamide [Motpoly Xr] 150 mg PO DAILY 12/05/23 [History Confirmed 12/05/23] Molnupiravir [Molnupiravir (Eua)] 200 mg PO DAILY 12/05/23 [History Confirmed 12/05/23] Allergies/Adverse Reactions: Allergies Allergy/AdvReac Type Severity Reaction Status Date / Time No Known Drug Allergies Allergy Verified 12/05/23 09:36 - Past Medical History Past Medical History: Yes Neurological History: Seizures, TIA ENT History: Cataracts Cardiac History: Arrhythmia, Myocardial Infarction ([place]), Hypertension, Other Respiratory History: Sleep Apnea Endocrine Medical History: No Pertinent History Musculoskelatal History: Arthritis GI Medical History: Crohns Disease, GERD, Pancreatitis History: Other Pyscho-Social History: Anxiety Reproductive Disorders: No Pertinent History Comment: [place] in her 30's. incontinence - Past Surgical History Past Surgical History: Yes Neuro Surgical History: No Pertinent History Cardiac History: Cardiac Catheterization Respiratory Surgery: No Pertinent History GI Surgical History: Other, Appendectomy, Cholecystectomy Genitourinary Surgical Hx: No Pertinent History Musculskeletal Surgical Hx: Orthopedic Surgery Female Surgical History: Hysterectomy Other Surgical History: BACK SURGERY,TUMOR REMOVAL - right flank and right leg\\. gastric bypass- 1999 - Social History Smoking Status: Former smoker Exposure to second hand smoke: Yes Alcohol: None Drug Use: none - Social Determinants of Health Will the patient participate in the screening: Yes Do you worry about a steady place to live?: No Do you have any problems with any of the following?: No known problems In the past 12 months,have you had to go without utilities?: No Have you or anyone in your house had to go without enough: No Transportation Issues: No Has anyone in your support network made you feel unsafe?: No Does the patient want assistance with any of the above?: No - Physical Exam Vital Signs: Vital Signs - 24 hr Temp Pulse Resp BP BP Pulse Ox 12/05/23 14:01 95 12/05/23 14:00 72 28 H 125/63 93 L 12/05/23 13:30 72 22 131/62 12/05/23 13:00 86 19 157/78 12/05/23 12:30 82 39 H 156/92 95 12/05/23 12:00 69 18 156/69 96 12/05/23 11:41 69 18 160/66 96 12/05/23 11:40 83 22 96 12/05/23 11:00 69 15 146/72 96 12/05/23 10:50 66 23 96 12/05/23 10:40 66 15 96 12/05/23 10:39 67 14 95 12/05/23 10:24 138/63 12/05/23 10:23 76 20 145/65 95 12/05/23 10:21 65 16 135/55 12/05/23 10:00 65 16 122/59 96 12/05/23 09:41 97.2 F 64 16 126/66 96 General Appearance: no apparent distress Neurologic Exam: alert, oriented x 3, 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, 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 as 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 Eye Exam: PERRL/EOMI Ears, Nose, Throat Exam: moist mucous membranes Neck Exam: full range of motion Respiratory Exam: normal breath sounds, lungs clear Cardiovascular Exam: regular rate/rhythm, normal heart sounds Gastrointestinal/Abdomen Exam: soft, normal bowel sounds Rectal Exam: deferred Back Exam: normal inspection Extremity Exam: normal inspection Skin Exam: pale Results - Labs Lab/Micro Results: Lab Results-Last 24 Hours 12/05/23 12/05/23 12/05/23 Range/Units 10:45 10:45 10:45 WBC 9.9 (4.0-10.5) x10^3/uL RBC 3.67 L (4.1-5.4) x10^6/uL Hgb 10.8 L (12.0-16.0) g/dL Hct 34.5 L (35-47) % MCV 94.0 (78-100) fL MCH 29.4 (26-32) pg MCHC 31.3 L (32-36) g/dL RDW 18.3 H (11.5-14.0) % Plt Count 336 (150-450) x10^3/uL MPV 9.8 (7.5-11.0) fL Gran % 80.4 H (36.0-66.0) % Immature Gran % (Auto) 0.3 (0.00-0.4) % Nucleat RBC Rel Count 0.0 (0.00-0.1) % Eos # (Auto) 0.04 (0-0.5) x10^3/uL Immature Gran # (Auto) 0.03 (0.00-0.03) x10^3u/L Absolute Lymphs (auto) 1.40 (1.0-4.6) x10^3/uL Absolute Monos (auto) 0.42 (0.0-1.3) x10^3/uL Absolute Nucleated RBC 0.00 (0.00-0.01) x10^3u/L Lymphocytes % 14.2 L (24.0-44.0) % Monocytes % 4.3 (0.0-12.0) % Eosinophils % 0.4 (0.00-5.0) % Basophils % 0.4 (0.0-0.4) % Absolute Granulocytes 7.95 H (1.4-6.9) x10^3/uL Basophils # 0.04 (0-0.4) x10^3/uL Sodium 138 (135-145) mmol/L Potassium 4.0 (3.5-5.1) mmol/L Chloride 106 (98-107) mmol/L Carbon Dioxide 25 (22-30) mmol/L Anion Gap 10.5 (5-15) MEQ/L BUN 17 (7-17) mg/dL Creatinine 0.57 (0.52-1.04) mg/dL Estimated GFR 90.1 ML/MIN Glucose 101 (74-106) mg/dL Lactic Acid 0.9 (0.4-2.0) Calcium 9.1 (8.4-10.2) mg/dL Magnesium 2.2 (1.6-2.3) mg/dL Total Bilirubin 0.30 (0.2-1.3) mg/dL AST 20 (14-36) U/L ALT 11 (0-35) U/L Alkaline Phosphatase 105 (38-126) U/L Troponin I (0.000-0.033) ng/mL NT-Pro-B Natriuret Pep 214 (<300) pg/mL Serum Total Protein 7.1 (6.3-8.2) g/dL Albumin 3.6 (3.5-5.0) g/dL 12/05/23 12/05/23 Range/Units 10:45 14:13 WBC (4.0-10.5) x10^3/uL RBC (4.1-5.4) x10^6/uL Hgb (12.0-16.0) g/dL Hct (35-47) % MCV (78-100) fL MCH (26-32) pg MCHC (32-36) g/dL RDW (11.5-14.0) % Plt Count (150-450) x10^3/uL MPV (7.5-11.0) fL Gran % (36.0-66.0) % Immature Gran % (Auto) (0.00-0.4) % Nucleat RBC Rel Count (0.00-0.1) % Eos # (Auto) (0-0.5) x10^3/uL Immature Gran # (Auto) (0.00-0.03) x10^3u/L Absolute Lymphs (auto) (1.0-4.6) x10^3/uL Absolute Monos (auto) (0.0-1.3) x10^3/uL Absolute Nucleated RBC (0.00-0.01) x10^3u/L Lymphocytes % (24.0-44.0) % Monocytes % (0.0-12.0) % Eosinophils % (0.00-5.0) % Basophils % (0.0-0.4) % Absolute Granulocytes (1.4-6.9) x10^3/uL Basophils # (0-0.4) x10^3/uL Sodium (135-145) mmol/L Potassium (3.5-5.1) mmol/L Chloride (98-107) mmol/L Carbon Dioxide (22-30) mmol/L Anion Gap (5-15) MEQ/L BUN (7-17) mg/dL Creatinine (0.52-1.04) mg/dL Estimated GFR ML/MIN Glucose (74-106) mg/dL Lactic Acid (0.4-2.0) Calcium (8.4-10.2) mg/dL Magnesium (1.6-2.3) mg/dL Total Bilirubin (0.2-1.3) mg/dL AST (14-36) U/L ALT (0-35) U/L Alkaline Phosphatase (38-126) U/L Troponin I < 0.012 < 0.012 (0.000-0.033) ng/mL NT-Pro-B Natriuret Pep (<300) pg/mL Serum Total Protein (6.3-8.2) g/dL Albumin (3.5-5.0) g/dL - Radiology Impressions Radiology Exams & Impressions: Radiology Procedures Category Date Time Status CHEST 1 VIEW (PORTABLE) Stat Exams 12/05/23 10:17 Completed HEAD WITHOUT CONTRAST [CT] Stat Exams 12/05/23 10:18 Completed Assessment/Plan (1) Syncope and collapse Current Visit: Yes Status: Acute Assessment & Plan: -Gentle hydration -Tele -EKG NS with no ST elevation -Trops x1 normal -CT head with no acute findings -CXR with no acute findings --Will obtain UA -No recent ECHO on file, will obtain -Carotid duplex -Orthostatic vitals -TSH -Med review for offending agents -PT/OT Code(s): R55 - SYNCOPE AND COLLAPSE (2) Essential hypertension Current Visit: No Status: Chronic Assessment & Plan: -BP stable, continue home medications Code(s): I10 - ESSENTIAL (PRIMARY) HYPERTENSION (3) Anemia Current Visit: Yes Status: Acute Assessment & Plan: -Normocytic, hgb appears to be at baseline at 10.8, patient has OP follow up with hematology Code(s): D64.9 - ANEMIA, UNSPECIFIED (4) History of seizure disorder Current Visit: Yes Status: Acute Assessment & Plan: -On vimpat, will continue, no seizures for years, does not follow with neurology Code(s): Z86.69 - PERSONAL HISTORY OF DIS OF THE NERVOUS SYS AND SENSE ORGANS Telemedicine Encounter - Telemedicine Encounter Telemedicine Encounter: The entirety of this encounter was performed via Telemedicine"
[2023-12-05] MEDS ORDERED: TYLENOL 325 MG PO PRN (15:43)
[2023-12-05] MEDS ORDERED: Zofran 4 MG/2 ML VIAL IV PRN (15:43)
[2023-12-05 16:09] LABS: Appearance Clear (Clear); Bacteria Rare /HPF (None Seen); Bilirubin Negative (Negative); Blood Negative (Negative); Epithelial Cells None Seen /HPF (None Seen); Glucose, Urine Negative (Negative); Hyaline Casts NONE SEEN /LPF (0-2); Ketones Negative (Negative); Leukocyte Esterase Trace (Negative); Nitrite Negative (Negative); Protein,Urine Dip Negative (Negative); WBC 0-2 /HPF (0-5)
[2023-12-05 16:12] VITALS: RESP 16
[2023-12-05 16:17] LABS: ADD URINE CULTURE? NO (NO)
--- NOTE | 2023-12-05 16:58 | XRAY ---
Indication: Syncope. Two-dimensional sonogram and color Doppler imaging carotid arteries of the neck performed. Comparison: None Examination right carotid circulation demonstrates widely patent common carotid artery. Carotid bulb demonstrates minimal calcified plaquing. Remaining internal carotid and additional carotid arteries are widely patent. PSV CCA is 55 cm/s. PSV ICA is 91 cm/s. ICA/CCA ratio is 1.7. Normal antegrade vertebral artery flow. Examination left carotid circulation demonstrates widely patent common carotid artery. Carotid bulb demonstrates minimal/mild calcified plaquing. Remaining internal carotid and external carotid arteries are patent. PSV CCA is 54 cm/s. PSV ICA is 87 cm/s. ICA/CCA ratio is 1.6. Normal antegrade vertebral artery flow. Impression: Minimal/mild arteriosclerotic plaquing in both carotid bulbs. Velocity measurements and ratios negative for hemodynamically significant flow-limiting stenosis.
[2023-12-05 16:59] LABS: Iron 42 ug/dL (37-170); Iron Saturation 13 % (20-39); TIBC 327 ug/dL (265-462)
[2023-12-05 17:54] LABS: Ferritin 5.88 ng/mL (11.1-264); Folate (Folic Acid) 14.6 ng/mL (2.76 - >20); TSH, 3RD Generation 1.136 mIU/L (0.470-4.680)
[2023-12-06 05:19] LABS: Absolute Neutrophil Ct (ANC) 4.85 x10^3/uL (1.4-6.9); BASOPHIL % 0.4 % (0.0-0.4); Basophil (Absolute #) 0.03 x10^3/uL (0-0.4); Eosinophil % 1.2 % (0.00-5.0); Eosinophil (Absolute #) 0.09 x10^3/uL (0-0.5); Hematocrit 28.8 % (35-47); IMMATURE GRAN # 0.03 x10^3u/L (0.00-0.03); IMMATURE GRAN % 0.4 % (0.00-0.4); Lymphocyte (Absolute #) 2.05 x10^3/uL (1.0-4.6); Lymphocytes % 26.8 % (24.0-44.0); Mean Cell Volume 92.6 fL (78-100); Mean Corpuscular Hemoglobin 28.9 pg (26-32); Mean Corpuscular Hgb Concent. 31.3 g/dL (32-36); Monocytes % 7.8 % (0.0-12.0); Neutrophil % 63.4 % (36.0-66.0); Platelet Count 286 x10^3/uL (150-450); Red Blood Count 3.11 x10^6/uL (4.1-5.4); Red Cell Distribution Width 18.2 % (11.5-14.0); White Blood Count 7.7 x10^3/uL (4.0-10.5)
[2023-12-06] MEDS ORDERED: MEDICATION INTERVENTION MC SCH ×2 (07:15→07:30)
[2023-12-06 07:19] VITALS: BP 146/73; PULSE 69; TEMP 97.6; O2SAT 93
[2023-12-06 08:06] LABS: ALBUMIN 2.8 g/dL (3.5-5.0); ANION GAP 8.7 MEQ/L (5-15); BILIRUBIN,TOTAL 0.2 mg/dL (0.2-1.3); Calcium 8.2 mg/dL (8.4-10.2); Creatinine 1 0.56 mg/dL (0.52-1.04); EST GLOMERULAR FILTRATION RATE 90.5 ML/MIN; Potassium 3.8 mmol/L (3.5-5.1); Total Protein 5.6 g/dL (6.3-8.2)
[2023-12-06] MEDS: Coreg PO SCH (09:17)
[2023-12-06] MEDS: PATIENT OWN MEDICATION PO SCH ×2 (09:17)
[2023-12-06] MEDS ORDERED: VERAPAMIL HCL 200 MG PO SCH (10:00)
[2023-12-06] MEDS ORDERED: LACOSAMIDE 150 MG PO SCH (10:00)
--- NOTE | 2023-12-06 10:19 | PCM.DS ---
Discharge Summary Date of Admission: 12/05/23 14:50 Date of Discharge: 12/06/23 Admitting Physician: LARISSA JARAMILLO MD Primary Care Provider: IRMA KIRKLAND Allergies Allergies No Known Drug Allergies Allergy (Verified 12/05/23 09:36) Hospital Summary - Hospital Course Hospital Course: is a 83 year old female with a pmhx of seizures, TIA, AL, HTN, and anxiety who presented to [facility] 12/05/23 after experiencing a syncopal episode at home. Patient reports that she does not remember much preceding the episode but she does remember that she was sitting her chair and that she had become nauseated as her son was helping her to the bathroom. She reports that her son told her she had lost consciousness. She states she did not fall or experience trauma as her son was holding on to her. No seizure-like activity was witnessed. No postical phase. Per family report in ED, patient recovered quickly, less than a minute. She denies previous similar episodes, shortness of breath, headaches, visual changes, palpitations, or chest pain. No recent sick contacts or illness. Patient does report she has a past history seizures - last one several years ago, and this episode was not similar to previous seizure activity. She takes Vimpat daily but does not follow with neurology. There is also a history of arrhythmias, she thinks AFIB, but is not sure. In ED, vitals unremarkable. EKG is normal sinus with no acute ST elevation, does have old Q waves/infarct. CT head negative for any acute intracranial findings. Chest x-ray showing COPD with no acute cardiopulmonary processes. Labs with normocytic anemia with hgb at 10.8, otherwise unremarkable. No further events during hospitalization. Patient admitted for evaluation of syncope. No further events noted. Echo has been obtained and pending. Patient will be discharged on holter monitor with follow up with cardiology. Advised patient to also follow up with hematology as scheduled for her iron deficiency anemia. Patient agreeable to plan and stable for discharge. Also discussed taking her home prescriptions as prescribed. Discharge Note New Diagnosis: Syncope New Medications:none Follow Up: PCP/Cards Latest Assessment & Plan (1) Syncope and collapse Current Visit: Yes Status: Acute Assessment & Plan: -Gentle hydration -Tele -EKG NS with no ST elevation -Trops x1 normal -CT head with no acute findings -CXR with no acute findings --Will obtain UA -No recent ECHO on file, will obtain -Carotid duplex -Orthostatic vitals -TSH -Med review for offending agents -PT/OT 12/05: -orthostatic vitals negative -Echo pending -PMG to read/follow up as OP -Holter monitor ordered with scheduled f/u with cardiology -Carotid reviewed with minimal/mild arteriosclerotic plaquing in both carotid bulbs. Velocity measurements and ratios negative for hemodynamically significant flow-limiting stenosis. Code(s): R55 - SYNCOPE AND COLLAPSE (2) Essential hypertension Current Visit: No Status: Chronic Assessment & Plan: -BP stable, continue home medications Code(s): I10 - ESSENTIAL (PRIMARY) HYPERTENSION (3) Anemia Current Visit: Yes Status: Acute Assessment & Plan: -Normocytic, hgb appears to be at baseline at 10.8, patient has OP follow up with hematology Code(s): D64.9 - ANEMIA, UNSPECIFIED (4) History of seizure disorder Current Visit: Yes Status: Acute Assessment & Plan: -On lacosamide, will continue, no seizures for years, does not follow with neurology Code(s): Z86.69 - PERSONAL HISTORY OF DIS OF THE NERVOUS SYS AND SENSE ORGANS I spent 35 minutes [id number] with the patient on the day of discharge performing discharge exam, discussing hospital stay and discharge instructions with patient and caregivers, preparation of discharge records, prescriptions & referral forms and addressing any questions/concerns the patient had as docum ented above. - Vitals & Intake/Output Vital Signs: Vital Signs Temperature 97.6 F 12/06/23 07:00 Pulse Rate 69 12/06/23 07:00 Respiratory Rate 16 12/06/23 07:00 Blood Pressure 146/73 12/06/23 07:00 O2 Sat by Pulse Oximetry 93 L 12/06/23 07:00 Intake & Output: Intake & Output 12/03/23 12/04/23 12/05/23 12/06/23 11:59 11:59 11:59 11:59 Intake Total 2397 Output Total 1100 Balance 1297 Weight 73.3 kg 71 kg - Lab Result Diagrams: 12/06/23 04:30 12/06/23 04:30 Lab Results-Last 24 Hrs: Lab Results-Last 24 Hours 12/05/23 12/05/23 12/05/23 Range/Units 10:45 10:45 10:45 WBC 9.9 (4.0-10.5) x10^3/uL RBC 3.67 L (4.1-5.4) x10^6/uL Hgb 10.8 L (12.0-16.0) g/dL Hct 34.5 L (35-47) % MCV 94.0 (78-100) fL MCH 29.4 (26-32) pg MCHC 31.3 L (32-36) g/dL RDW 18.3 H (11.5-14.0) % Plt Count 336 (150-450) x10^3/uL MPV 9.8 (7.5-11.0) fL Gran % 80.4 H (36.0-66.0) % Immature Gran % (Auto) 0.3 (0.00-0.4) % Nucleat RBC Rel Count 0.0 (0.00-0.1) % Eos # (Auto) 0.04 (0-0.5) x10^3/uL Immature Gran # (Auto) 0.03 (0.00-0.03) x10^3u/L Absolute Lymphs (auto) 1.40 (1.0-4.6) x10^3/uL Absolute Monos (auto) 0.42 (0.0-1.3) x10^3/uL Absolute Nucleated RBC 0.00 (0.00-0.01) x10^3u/L Lymphocytes % 14.2 L (24.0-44.0) % Monocytes % 4.3 (0.0-12.0) % Eosinophils % 0.4 (0.00-5.0) % Basophils % 0.4 (0.0-0.4) % Absolute Granulocytes 7.95 H (1.4-6.9) x10^3/uL Basophils # 0.04 (0-0.4) x10^3/uL Sodium 138 (135-145) mmol/L Potassium 4.0 (3.5-5.1) mmol/L Chloride 106 (98-107) mmol/L Carbon Dioxide 25 (22-30) mmol/L Anion Gap 10.5 (5-15) MEQ/L BUN 17 (7-17) mg/dL Creatinine 0.57 (0.52-1.04) mg/dL Estimated GFR 90.1 ML/MIN Glucose 101 (74-106) mg/dL POC Glucometer Hemoglobin A1c (4.5-6.0) % Lactic Acid 0.9 (0.4-2.0) Calcium 9.1 (8.4-10.2) mg/dL Magnesium 2.2 (1.6-2.3) mg/dL Iron (37-170) ug/dL TIBC (265-462) ug/dL Iron Saturation (20-39) % Ferritin (11.1-264) ng/mL Total Bilirubin 0.30 (0.2-1.3) mg/dL AST 20 (14-36) U/L ALT 11 (0-35) U/L Alkaline Phosphatase 105 (38-126) U/L Troponin I (0.000-0.033) ng/mL NT-Pro-B Natriuret Pep 214 (<300) pg/mL Serum Total Protein 7.1 (6.3-8.2) g/dL Albumin 3.6 (3.5-5.0) g/dL Vitamin B12 (239-931) pg/mL Folic Acid (2.76 - >20) ng/mL TSH 3rd Generation (0.470-4.680) mIU/L Urine Color (Yellow) Urine Appearance (Clear) Urine pH (4.6-8.0) Ur Specific [place] (1.005-1.030) Urine Protein (Negative) Urine Glucose (UA) (Negative) mg/dL Urine Ketones (Negative) Urine Blood (Negative) Urine Nitrite (Negative) Urine Bilirubin (Negative) Urine Urobilinogen (0.2) mg/dL Ur Leukocyte Esterase (Negative) U Hyaline Cast (Auto) (0-2) /LPF Urine Microscopic RBC (0-5) /HPF Urine Microscopic WBC (0-5) /HPF Ur Epithelial Cells (None Seen) /HPF Urine Bacteria (None Seen) /HPF Urine Culture Reflexed (NO) 12/05/23 12/05/23 12/05/23 Range/Units 10:45 10:45 10:45 WBC (4.0-10.5) x10^3/uL RBC (4.1-5.4) x10^6/uL Hgb (12.0-16.0) g/dL Hct (35-47) % MCV (78-100) fL MCH (26-32) pg MCHC (32-36) g/dL RDW (11.5-14.0) % Plt Count (150-450) x10^3/uL MPV (7.5-11.0) fL Gran % (36.0-66.0) % Immature Gran % (Auto) (0.00-0.4) % Nucleat RBC Rel Count (0.00-0.1) % Eos # (Auto) (0-0.5) x10^3/uL Immature Gran # (Auto) (0.00-0.03) x10^3u/L Absolute Lymphs (auto) (1.0-4.6) x10^3/uL Absolute Monos (auto) (0.0-1.3) x10^3/uL Absolute Nucleated RBC (0.00-0.01) x10^3u/L Lymphocytes % (24.0-44.0) % Monocytes % (0.0-12.0) % Eosinophils % (0.00-5.0) % Basophils % (0.0-0.4) % Absolute Granulocytes (1.4-6.9) x10^3/uL Basophils # (0-0.4) x10^3/uL Sodium (135-145) mmol/L Potassium (3.5-5.1) mmol/L Chloride (98-107) mmol/L Carbon Dioxide (22-30) mmol/L Anion Gap (5-15) MEQ/L BUN (7-17) mg/dL Creatinine (0.52-1.04) mg/dL Estimated GFR ML/MIN Glucose (74-106) mg/dL POC Glucometer Hemoglobin A1c (4.5-6.0) % Lactic Acid (0.4-2.0) Calcium (8.4-10.2) mg/dL Magnesium (1.6-2.3) mg/dL Iron 42 (37-170) ug/dL TIBC 327 (265-462) ug/dL Iron Saturation 13 L (20-39) % Ferritin 5.88 L (11.1-264) ng/mL Total Bilirubin (0.2-1.3) mg/dL AST (14-36) U/L ALT (0-35) U/L Alkaline Phosphatase (38-126) U/L Troponin I < 0.012 (0.000-0.033) ng/mL NT-Pro-B Natriuret Pep (<300) pg/mL Serum Total Protein (6.3-8.2) g/dL Albumin (3.5-5.0) g/dL Vitamin B12 531 (239-931) pg/mL Folic Acid 14.6 (2.76 - >20) ng/mL TSH 3rd Generation 1.136 (0.470-4.680) mIU/L Urine Color (Yellow) Urine Appearance (Clear) Urine pH (4.6-8.0) Ur Specific [place] (1.005-1.030) Urine Protein (Negative) Urine Glucose (UA) (Negative) mg/dL Urine Ketones (Negative) Urine Blood (Negative) Urine Nitrite (Negative) Urine Bilirubin (Negative) Urine Urobilinogen (0.2) mg/dL Ur Leukocyte Esterase (Negative) U Hyaline Cast (Auto) (0-2) /LPF Urine Microscopic RBC (0-5) /HPF Urine Microscopic WBC (0-5) /HPF Ur Epithelial Cells (None Seen) /HPF Urine Bacteria (None Seen) /HPF Urine Culture Reflexed (NO) 12/05/23 12/05/23 12/05/23 Range/Units 10:45 14:13 15:30 WBC (4.0-10.5) x10^3/uL RBC (4.1-5.4) x10^6/uL Hgb (12.0-16.0) g/dL Hct (35-47) % MCV (78-100) fL MCH (26-32) pg MCHC (32-36) g/dL RDW (11.5-14.0) % Plt Count (150-450) x10^3/uL MPV (7.5-11.0) fL Gran % (36.0-66.0) % Immature Gran % (Auto) (0.00-0.4) % Nucleat RBC Rel Count (0.00-0.1) % Eos # (Auto) (0-0.5) x10^3/uL Immature Gran # (Auto) (0.00-0.03) x10^3u/L Absolute Lymphs (auto) (1.0-4.6) x10^3/uL Absolute Monos (auto) (0.0-1.3) x10^3/uL Absolute Nucleated RBC (0.00-0.01) x10^3u/L Lymphocytes % (24.0-44.0) % Monocytes % (0.0-12.0) % Eosinophils % (0.00-5.0) % Basophils % (0.0-0.4) % Absolute Granulocytes (1.4-6.9) x10^3/uL Basophils # (0-0.4) x10^3/uL Sodium (135-145) mmol/L Potassium (3.5-5.1) mmol/L Chloride (98-107) mmol/L Carbon Dioxide (22-30) mmol/L Anion Gap (5-15) MEQ/L BUN (7-17) mg/dL Creatinine (0.52-1.04) mg/dL Estimated GFR ML/MIN Glucose (74-106) mg/dL POC Glucometer Hemoglobin A1c 5.12 (4.5-6.0) % Lactic Acid (0.4-2.0) Calcium (8.4-10.2) mg/dL Magnesium (1.6-2.3) mg/dL Iron (37-170) ug/dL TIBC (265-462) ug/dL Iron Saturation (20-39) % Ferritin (11.1-264) ng/mL Total Bilirubin (0.2-1.3) mg/dL AST (14-36) U/L ALT (0-35) U/L Alkaline Phosphatase (38-126) U/L Troponin I < 0.012 (0.000-0.033) ng/mL NT-Pro-B Natriuret Pep (<300) pg/mL Serum Total Protein (6.3-8.2) g/dL Albumin (3.5-5.0) g/dL Vitamin B12 (239-931) pg/mL Folic Acid (2.76 - >20) ng/mL TSH 3rd Generation (0.470-4.680) mIU/L Urine Color Yellow (Yellow) Urine Appearance Clear (Clear) Urine pH 6.0 (4.6-8.0) Ur Specific [place] 1.010 (1.005-1.030) Urine Protein Negative (Negative) Urine Glucose (UA) Negative (Negative) mg/dL Urine Ketones Negative (Negative) Urine Blood Negative (Negative) Urine Nitrite Negative (Negative) Urine Bilirubin Negative (Negative) Urine Urobilinogen 1.0 A (0.2) mg/dL Ur Leukocyte Esterase Trace A (Negative) U Hyaline Cast (Auto) NONE SEEN (0-2) /LPF Urine Microscopic RBC 3-5 (0-5) /HPF Urine Microscopic WBC 0-2 (0-5) /HPF Ur Epithelial Cells None Seen (None Seen) /HPF Urine Bacteria Rare A (None Seen) /HPF Urine Culture Reflexed NO (NO) 12/05/23 12/06/23 12/06/23 Range/Units 18:30 04:30 04:30 WBC 7.7 (4.0-10.5) x10^3/uL RBC 3.11 L (4.1-5.4) x10^6/uL Hgb 9.0 L (12.0-16.0) g/dL Hct 28.8 L (35-47) % MCV 92.6 (78-100) fL MCH 28.9 (26-32) pg MCHC 31.3 L (32-36) g/dL RDW 18.2 H (11.5-14.0) % Plt Count 286 (150-450) x10^3/uL MPV 10.0 (7.5-11.0) fL Gran % 63.4 (36.0-66.0) % Immature Gran % (Auto) 0.4 (0.00-0.4) % Nucleat RBC Rel Count 0.0 (0.00-0.1) % Eos # (Auto) 0.09 (0-0.5) x10^3/uL Immature Gran # (Auto) 0.03 (0.00-0.03) x10^3u/L Absolute Lymphs (auto) 2.05 (1.0-4.6) x10^3/uL Absolute Monos (auto) 0.60 (0.0-1.3) x10^3/uL Absolute Nucleated RBC 0.00 (0.00-0.01) x10^3u/L Lymphocytes % 26.8 (24.0-44.0) % Monocytes % 7.8 (0.0-12.0) % Eosinophils % 1.2 (0.00-5.0) % Basophils % 0.4 (0.0-0.4) % Absolute Granulocytes 4.85 (1.4-6.9) x10^3/uL Basophils # 0.03 (0-0.4) x10^3/uL Sodium 140 (135-145) mmol/L Potassium 3.8 (3.5-5.1) mmol/L Chloride 111 H (98-107) mmol/L Carbon Dioxide 24 (22-30) mmol/L Anion Gap 8.7 (5-15) MEQ/L BUN 15 (7-17) mg/dL Creatinine 0.56 (0.52-1.04) mg/dL Estimated GFR 90.5 ML/MIN Glucose 82 (74-106) mg/dL POC Glucometer Hemoglobin A1c (4.5-6.0) % Lactic Acid (0.4-2.0) Calcium 8.2 L (8.4-10.2) mg/dL Magnesium (1.6-2.3) mg/dL Iron (37-170) ug/dL TIBC (265-462) ug/dL Iron Saturation (20-39) % Ferritin (11.1-264) ng/mL Total Bilirubin 0.20 (0.2-1.3) mg/dL AST 16 (14-36) U/L ALT 9 (0-35) U/L Alkaline Phosphatase 85 (38-126) U/L Troponin I < 0.012 (0.000-0.033) ng/mL NT-Pro-B Natriuret Pep (<300) pg/mL Serum Total Protein 5.6 L (6.3-8.2) g/dL Albumin 2.8 L (3.5-5.0) g/dL Vitamin B12 (239-931) pg/mL Folic Acid (2.76 - >20) ng/mL TSH 3rd Generation (0.470-4.680) mIU/L Urine Color (Yellow) Urine Appearance (Clear) Urine pH (4.6-8.0) Ur Specific [place] (1.005-1.030) Urine Protein (Negative) Urine Glucose (UA) (Negative) mg/dL Urine Ketones (Negative) Urine Blood (Negative) Urine Nitrite (Negative) Urine Bilirubin (Negative) Urine Urobilinogen (0.2) mg/dL Ur Leukocyte Esterase (Negative) U Hyaline Cast (Auto) (0-2) /LPF Urine Microscopic RBC (0-5) /HPF Urine Microscopic WBC (0-5) /HPF Ur Epithelial Cells (None Seen) /HPF Urine Bacteria (None Seen) /HPF Urine Culture Reflexed (NO) 12/06/23 Range/Units 06:46 WBC (4.0-10.5) x10^3/uL RBC (4.1-5.4) x10^6/uL Hgb (12.0-16.0) g/dL Hct (35-47) % MCV (78-100) fL MCH (26-32) pg MCHC (32-36) g/dL RDW (11.5-14.0) % Plt Count (150-450) x10^3/uL MPV (7.5-11.0) fL Gran % (36.0-66.0) % Immature Gran % (Auto) (0.00-0.4) % Nucleat RBC Rel Count (0.00-0.1) % Eos # (Auto) (0-0.5) x10^3/uL Immature Gran # (Auto) (0.00-0.03) x10^3u/L Absolute Lymphs (auto) (1.0-4.6) x10^3/uL Absolute Monos (auto) (0.0-1.3) x10^3/uL Absolute Nucleated RBC (0.00-0.01) x10^3u/L Lymphocytes % (24.0-44.0) % Monocytes % (0.0-12.0) % Eosinophils % (0.00-5.0) % Basophils % (0.0-0.4) % Absolute Granulocytes (1.4-6.9) x10^3/uL Basophils # (0-0.4) x10^3/uL Sodium (135-145) mmol/L Potassium (3.5-5.1) mmol/L Chloride (98-107) mmol/L Carbon Dioxide (22-30) mmol/L Anion Gap (5-15) MEQ/L BUN (7-17) mg/dL Creatinine (0.52-1.04) mg/dL Estimated GFR ML/MIN Glucose (74-106) mg/dL POC Glucometer TNP Hemoglobin A1c (4.5-6.0) % Lactic Acid (0.4-2.0) Calcium (8.4-10.2) mg/dL Magnesium (1.6-2.3) mg/dL Iron (37-170) ug/dL TIBC (265-462) ug/dL Iron Saturation (20-39) % Ferritin (11.1-264) ng/mL Total Bilirubin (0.2-1.3) mg/dL AST (14-36) U/L ALT (0-35) U/L Alkaline Phosphatase (38-126) U/L Troponin I (0.000-0.033) ng/mL NT-Pro-B Natriuret Pep (<300) pg/mL Serum Total Protein (6.3-8.2) g/dL Albumin (3.5-5.0) g/dL Vitamin B12 (239-931) pg/mL Folic Acid (2.76 - >20) ng/mL TSH 3rd Generation (0.470-4.680) mIU/L Urine Color (Yellow) Urine Appearance (Clear) Urine pH (4.6-8.0) Ur Specific [place] (1.005-1.030) Urine Protein (Negative) Urine Glucose (UA) (Negative) mg/dL Urine Ketones (Negative) Urine Blood (Negative) Urine Nitrite (Negative) Urine Bilirubin (Negative) Urine Urobilinogen (0.2) mg/dL Ur Leukocyte Esterase (Negative) U Hyaline Cast (Auto) (0-2) /LPF Urine Microscopic RBC (0-5) /HPF Urine Microscopic WBC (0-5) /HPF Ur Epithelial Cells (None Seen) /HPF Urine Bacteria (None Seen) /HPF Urine Culture Reflexed (NO) - Radiology Exams Ordered Rad Exams-Entire Visit: Radiology Procedures Category Date Time Status CAROTID BILATERAL [US] Urgent Exams 12/05/23 15:43 Completed CHEST 1 VIEW (PORTABLE) Stat Exams 12/05/23 10:17 Completed ECHO W/2D AND DOPPLER [US] Routine Exams 12/05/23 15:45 Taken HEAD WITHOUT CONTRAST [CT] Stat Exams 12/05/23 10:18 Completed - Procedures and Test Procedures and Tests throughout Hospitalization: Therapy Orders & Screens 12/05/23 15:43 PT Eval & Treat ( Order) ONCE Reason for Eval:: syncope Diagnosis: Syncope and collapse EKG REPEAT IN AM Comment: Diagnosis: Syncope and collapse Discharge Exam General Appearance: no apparent distress Neurologic Exam: alert, oriented x 3, cooperative Eye Exam: PERRL Ears, Nose, Throat Exam: normal ENT inspection Neck Exam: normal inspection Respiratory Exam: normal breath sounds, lungs clear Cardiovascular Exam: regular rate/rhythm, normal heart sounds Gastrointestinal/Abdomen Exam: soft, normal bowel sounds Pelvic Exam: deferred Rectal Exam: deferred Back Exam: normal inspection Extremity Exam: normal inspection Skin Exam: normal color Final Diagnosis/Problem List - Final Discharge Diagnosis/Problem (1) Syncope and collapse Current Visit: Yes Status: Acute Code(s): R55 - SYNCOPE AND COLLAPSE (2) Essential hypertension Current Visit: No Status: Chronic Code(s): I10 - ESSENTIAL (PRIMARY) HYPERTENSION (3) Anemia Current Visit: Yes Status: Acute Code(s): D64.9 - ANEMIA, UNSPECIFIED (4) History of seizure disorder Current Visit: Yes Status: Acute Code(s): Z86.69 - PERSONAL HISTORY OF DIS OF THE NERVOUS SYS AND SENSE ORGANS - Discharge Disposition: Home, Self-Care Condition: Stable Prescriptions: Continue Carvedilol [Coreg ] 6.25 mg PO DAILY HydrALAzine HCL 25 MG TAB [Apresoline 25 MG TABLET] 25 mg PO DAILY Verapamil HCl [Verapamil ER Pm] 200 mg PO DAILY Lacosamide 150 mg PO DAILY Follow up with: IRMA KIRKLAND [Primary Care Provider] - 12/10/23 2:30 pm KAYLEN SIMMONS MD [CONSULTING PHYSICIAN] - 12/12/23 9:40 am
--- NOTE | 2023-12-10 16:33 | ECHO ---
DATE: 12/05/2023 INDICATION: Syncope. The M-mode, 2D, and Doppler echocardiogram including color flow Doppler shows the left ventricle is normal in size. There is borderline asymmetric left ventricular hypertrophy involving the septum. The contractility of the left ventricle is normal. The ejection fraction is greater than 70%. The right ventricle is dilated. The left atrium is normal in size. The interatrial septum is intact. The right atrium is normal. The aortic valve opens well. The mitral valve is calcified. There is mild tricuspid regurgitation. The right ventricular systolic pressure is calculated to be 24 mm Hg. The pulmonic valve is not well visualized. The aortic root is normal. There is no pericardial effusion present. IMPRESSION: 1. NORMAL CONTRACTILITY OF THE LEFT VENTRICLE. 2. BORDERLINE ASYMMETRIC LEFT VENTRICULAR HYPERTROPHY INVOLVING THE INTERVENTRICULAR SEPTUM. 3. DILATED RIGHT VENTRICLE. 4. MILD TRICUSPID REGURGITATION. 5. NORMAL RIGHT VENTRICULAR SYSTOLIC PRESSURE.
== END 2023-12-06 11:25 | disposition home or self-care (01) ==
LOC: ED 09:27 → MED SURG 14:50
PROVIDERS: ADMIT Internal Medicine; ATTEND Internal Medicine
DX: R55 Syncope and collapse (principal); I10 Essential (primary) hypertension; D64.9 Anemia, unspecified; Z86.69 Personal history of other diseases of the nervous system and sense organs; Z86.73 Personal history of transient ischemic attack (TIA), and cerebral infarction without residual deficits; I25.2 Old myocardial infarction; F41.9 Anxiety disorder, unspecified; Z79.899 Other long term (current) drug therapy
CPT/HCPCS: 36415; 70450; 71045; 80053; 81001; 82607; 82728; 82746; 83036; 83540; 83550; 83605; 83735; 83880; 84443; 84484; 85025; 93005; 93041; 93246; 93268; 93306; 93880; 97161; 99285; G0378; Q3014; A9270-GY

== ENCOUNTER 2024-01-26 23:05 | Emergency (ER) | payer MEDICARE, OTHER ==
[2024-01-26 23:29] VITALS: TEMP 97.9
[2024-01-26] MEDS ORDERED: TYLENOL 325 MG ONE (23:36)
[2024-01-26] MEDS: TYLENOL 325 MG PO ONE (23:36)
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
[2024-01-27] MEDS ORDERED: TORAdol 30 mg Injection ONE (01:49)
[2024-01-27] MEDS: TORAdol 30 mg Injection IM ONE (01:50)
[2024-01-27 02:34] VITALS: BP 183/87; PULSE 77; RESP 18; O2SAT 97
== END 2024-01-27 02:30 | disposition home or self-care (01) ==
LOC: ED 23:05
DX: S30.0XXA Contusion of lower back and pelvis, initial encounter (principal); V03.00XA Pedestrian on foot injured in collision with car, pick-up truck or van in nontraffic accident, initial encounter; G44.319 Acute post-traumatic headache, not intractable; I10 Essential (primary) hypertension; Z79.899 Other long term (current) drug therapy
CPT/HCPCS: 70450; 72131; 96372; 99284; J1885; A9270-GY

== ENCOUNTER 2024-04-01 15:46 | Emergency (ER) | payer MEDICARE, OTHER ==
--- NOTE | 2024-04-01 16:13 | ERPHSYRPT ---
- History of Present Illness Time Seen by Provider: 04/01/24 16:09 Source: patient Exam Limitations: no limitations Physician History: Patient is an 83-year-old female presents to our ED for pain to her left shoulder. Patient states she was walking in her yard when her foot got caught on the lawn causing her to fall. Patient fell onto her left shoulder. Injury occurred just prior to arrival. Pain described as an ache that is localized. Pain worse with movement and palpation. Pain improved with rest. No BHT or LOC. No neck pain. The fall was not associated with any neuro cardiovascular symptomology. No associated chest pain or shortness of breath. No nausea vomiting or diaphoresis. No numbness tingling or weakness. Patient otherwise feels well. She voices no other complaints or concerns at this time. Portions of this note were created with voice recognition technology. There may be grammatical, spelling, punctuation or sound alike errors Occurred: just prior to arrival Method of Injury: fell Quality: constant Severity of Pain-Max: moderate Severity of Pain-Current: mild Extremities Pain Location: shoulder: left Modifying Factors: Improves With: movement Associated Symptoms: none Allergies/Adverse Reactions: No Known Drug Allergies Allergy (Verified 04/01/24 16:11) Home Medications: Carvedilol [Coreg ] 6.25 mg PO DAILY 09/17/23 [History] HydrALAzine HCL 25 MG TAB [Apresoline 25 MG TABLET] 25 mg PO DAILY 12/05/23 [History] Verapamil HCl [Verapamil ER Pm] 200 mg PO DAILY 12/05/23 [History] Lacosamide 150 mg PO DAILY 12/06/23 [History] Hx Tetanus, Diphtheria Vaccination/Date Given: No Hx Influenza Vaccination/Date Given: Yes Hx Pneumococcal Vaccination/Date Given: Yes Travel Risk - Emerging Infectious Disease Are you exhibiting symptoms associated with any current EIDs: No - Review of Systems Constitutional: No Symptoms, No Fever, No Chills Eyes: No Symptoms Ears, Nose, & Throat: No Symptoms Respiratory: No Symptoms, No Cough, No Dyspnea Cardiac: No Symptoms, No Chest Pain, No Edema, No Syncope Abdominal/Gastrointestinal: No Symptoms, No Abdominal Pain, No Nausea, No Vomiting, No Diarrhea Genitourinary Symptoms: No Symptoms, No Dysuria Musculoskeletal: No Symptoms, No Back Pain, No Neck Pain Skin: No Symptoms, No Rash Neurological: No Symptoms, No Dizziness, No Focal Weakness, No Sensory Changes Psychological: No Symptoms Endocrine: No Symptoms Hematologic/Lymphatic: No Symptoms Immunological/Allergic: No Symptoms All Other Systems: Reviewed and Negative - Past Medical History Pertinent Past Medical History: Yes Neurological History: Seizures, TIA ENT History: Cataracts Cardiac History: Arrhythmia, Myocardial Infarction ([place]), Hypertension, Other Respiratory History: Sleep Apnea Endocrine Medical History: No Pertinent History Musculoskeletal History: Arthritis GI Medical History: Crohns Disease, GERD, Pancreatitis History: Other Psycho-Social History: Anxiety Female Reproductive Disorders: No Pertinent History Other Medical History: [place] in her 30's. incontinence - Past Surgical History Past Surgical History: Yes Neuro Surgical History: No Pertinent History Cardiac: Cardiac Catheterization Respiratory: No Pertinent History Gastrointestinal: Other, Appendectomy, Cholecystectomy Genitourinary: No Pertinent History Musculoskeletal: Orthopedic Surgery Female Surgical History: Hysterectomy Other Surgical History: BACK SURGERY,TUMOR REMOVAL - right flank and right leg\. gastric bypass- 1999 - Social History Smoking Status: Former smoker Exposure to second hand smoke: Yes Drug Use: none Patient Lives Alone: No - Social Determinants of Health Will the patient participate in the screening: Yes Do you worry about a steady place to live?: No In the past 12 months,have you had to go without utilities?: No Transportation Issues: No Has anyone in your support network made you feel unsafe?: No Have you or anyone in your house had to go without enough: No - Nursing Vital Signs Nursing Vital Signs: Initial Vital Signs Temperature 97.8 F 04/01/24 16:12 Pulse Rate 87 04/01/24 16:12 Respiratory Rate 20 04/01/24 16:12 Blood Pressure 153/89 04/01/24 16:12 O2 Sat by Pulse Oximetry 93 L 04/01/24 16:12 Pain Scale Pain Intensity 10 - Physical Exam General Appearance: no apparent distress, alert Eyes, Ears, Nose, Throat Exam: moist mucous membranes Neck Exam: non-tender, supple Cardiovascular/Respiratory Exam: chest non-tender, normal breath sounds, regular rate/rhythm, no respiratory distress Abdominal Exam: non-tender, No guarding Back Exam: normal inspection, No vertebral tenderness Shoulder Exam: limited ROM (Limited range of motion at the left shoulder. There is tenderness along the clavicle. The involved left upper extremity is neurovascular intact distally compartments are soft cap refill less than 2 seconds.) Elbow/Forearm Exam: normal inspection Wrist Exam: normal inspection Hand Exam: normal inspection Neuro/Tendon Exam: normal sensation, normal motor functions Mental Status Exam: alert, oriented x 3, cooperative Skin Exam: normal color, warm, dry SpO2 Interpretation: normal O2 Delivery: Room Air - Course Nursing assessment & vital signs reviewed: Yes - Radiology Exams Other X-ray Interpretation: Interpreted by me (Osteopenia left clavicle fracture) Shoulder X-ray Interpretation: Interpreted by me (Osteopenia no glenohumeral fracture dislocation) Ordered Tests: Active Orders 24 hr Category Date Time Status CLAVICLE Stat Exams 04/01/24 16:08 Completed SHOULDER Stat Exams 04/01/24 16:08 Completed Medication Summary Discontinued Medications Generic Name Dose Route Start Last Admin Trade Name Freq PRN Reason Stop Dose Admin Ketorolac Tromethamine 30 mg 04/01/24 16:14 04/01/24 16:18 Ketorolac Tromethamine 30 Mg/Ml Inj IM 04/01/24 16:15 30 mg STAT ONE Administration Ketorolac Tromethamine Confirm 04/01/24 16:17 Ketorolac Tromethamine 30 Mg/Ml Inj Administered 04/01/24 16:18 Dose 30 mg .ROUTE .STBetterLesson-MED ONE - Progress Progress: improved Progress Note: 83-year-old female presents to our ED for evaluation status post fall. Patient experiencing left shoulder pain. Deformity palpated on left clavicle. Overlying soft tissue intact. No tenting no open or draining lesions. The invo lved extremity is neurovascular tact distally compartments are soft cap refill less than 2 seconds. X-ray confirms a midshaft clavicular fracture at the left side. GH joint is intact. No humerus fracture. Osteopenia observed. Patient placed in a sling and given pain medication. Toradol administered IM. A prescription for Toradol forwarded to patient's pharmacy. A referral to the orthopedic clinic completed. Patient agrees to follow-up with the orthopedic clinic with tomorrow as scheduled. Daughter at bedside. They voiced no other complaints or concerns at this time. Portions of this note were created with voice recognition technology. There may be grammatical, spelling, punctuation or sound alike errors Complexity problem addressed is moderate acute complicated. No critical care time. Complex data reviewed and analyzed is moderate. Dr. Dorantes independently reviewed the x-ray of the left shoulder. Risk of complication or risk of morbidity/mortality patient management is moderate. Vital stable time spent to discharge patient approximately 15 minutes. Plan of care established for shared decision making. No social determinants of health presents in bed follow-up. Portions of this note were created with voice recognition technology. There may be grammatical, spelling, punctuation or sound alike errors 04/01/24 17:04 Counseled pt/family regarding: diagnosis, need for follow-up, rad results - Departure Departure Disposition: Home Clinical Impression: Fall, Clavicle fracture Condition: Stable Critical Care Time: No Referrals: IRMA KIRKLAND [Primary Care Provider] - Follow up/PCP as directed Additional Instructions: Discharge/Care Plan KRISTA HODGES was seen on 04/01/24 in the Emergency Room. The patient was counseled regarding Diagnosis,Lab results, Imaging studies, need for follow up and when to return to the Emergency Room. Prescriptions given: Discharge Note I have spoken with the patient and/or caregivers. I have explained the patient's condition, diagnosis and treatment plan based on the information available to me at this time. I have answered the patient's and/or caregiver's questions and addressed any concerns. The patient and/or caregivers have as good understanding of the patient's diagnosis, condition and treatment plan as can be expected at this point. The vital signs have been stable. The patient's condition is stable and appropriate for discharge from the emergency department. The patient will pursue further outpatient evaluation with the primary care physician or other designated or consulting physician as outlined in the discharge instructions. The patient and/or caregivers are agreeable to this plan of care and follow-up instructions have been explained in detail. The patient and/or caregivers have received these instruction. The patient/and or caregivers are aware that any significant change in condition or worsening of symptoms should prompt an immediate return to this or the closest emergency department or call 911. Prescriptions: Ketorolac Trometh 10 mg Tab [TORAdol 10 MG TABLET] 10 mg PO TID 5 Days #15 tablet Outpatient Orders: Ortho Referral Time Frame: 1 Day, Facility: [facility]. Hosp, Location: ORTHO CLINIC
[2024-04-01] MEDS ORDERED: TORAdol 30 mg Injection ONE (16:17)
[2024-04-01 16:18] VITALS: TEMP 97.8
[2024-04-01] MEDS: TORAdol 30 mg Injection IM ONE (16:18)
--- NOTE | 2024-04-01 17:00 | XRAY ---
Indication: Pain following fall. Comparison: None 2 view left clavicle demonstrates comminuted distal shaft fracture in bayonet apposition/alignment. Elsewhere osteopenia, mild left shoulder degenerative arthropathy, mild bilateral carotid calcifications, and tiny biapical pulmonary calcified granulomas.
--- NOTE | 2024-04-01 17:00 | XRAY ---
Indication: Pain following fall. Comparison: None 3 view left shoulder demonstrates comminuted distal clavicle shaft fracture in bayonet apposition/alignment. Elsewhere osteopenia, mild left shoulder degenerative arthropathy, mild bilateral carotid calcifications, and tiny biapical pulmonary calcified granulomas.
[2024-04-01 17:16] VITALS: BP 163/102; PULSE 72; RESP 16; O2SAT 96
== END 2024-04-01 17:25 | disposition home or self-care (01) ==
LOC: ED 15:46
DX: S42.022A Displaced fracture of shaft of left clavicle, initial encounter for closed fracture (principal); W01.0XXA Fall on same level from slipping, tripping and stumbling without subsequent striking against object, initial encounter; Y93.01 Activity, walking, marching and hiking; Y92.007 Garden or yard of unspecified non-institutional (private) residence as the place of occurrence of the external cause; M25.512 Pain in left shoulder; I10 Essential (primary) hypertension; Z79.899 Other long term (current) drug therapy
CPT/HCPCS: 73000; 73030; 96372; 99283; J1885